=== PATIENT | male | born 1990 | race Caucasian/White ===

== ENCOUNTER 2017-11-12 16:33 | Inpatient (IN) ==
[2018-01-19] MEDS ORDERED: Docusate Sodium 100 MG Capsule PO PRN (00:26)
[2018-01-19] MEDS: QUEtiapine 25 MG Tablet PO SCH ×2 (12:40→16:18)
[2018-01-19] MEDS: Enoxaparin Inj 40 MG/0.4 ML Syringe SQ SCH (13:37)
--- NOTE | 2018-01-19 13:55 | P.PN ---
Subjective Interval history: Follow-up on patient with TBI, SDH, SAH with encephalopathy. Patient seen and examined. Patient's father is at the bedside. Patient complains of nausea and vomiting and being unable to tolerate diet. Patient's father states that that is inaccurate and the patient has been tolerating diet fine without any N/V. Patient is requesting "a downer". Patient's father states that patient has insomnia and is requesting Valium at night to help him sleep. Discussed with nursing staff, no acute medical issues noted. Needs orthosis for right upper extremity. Physical Exam Vital signs: Vital Signs 01/19/18 08:00 01/19/18 12:00 Temperature 98.1 F 98.3 F Pulse Rate 110 H 130 H Respiratory Rate 20 20 Blood Pressure 106/58 L 103/61 Pulse Oximetry 98 98 Intake & Output 01/18/18 01/19/18 01/19/18 18:59 06:59 18:59 Intake Total 480 / 480 Balance 480 / 480 Weight 72.1 kg Intake: Oral 480 / 480 Other: # Voids 3 # Bowel Movements 2 Narrative: GENERAL: This is a well-developed well-nourished young male patient, INAD. Awake and alert. Sitting in wheelchair in his room presently but observed wheeling around the unit with the aid of his father. SKIN: Warm and dry. HEAD: Atraumatic. Normocephalic. EYES: Right eyelid ptosis, right pupil fixed adn dilated. Left pupil reactive. No scleral icterus. No injection or drainage. ENT: No nasal bleeding or discharge. Mucous membranes pink and moist. Airway patent. NECK: Trachea midline. CARDIOVASCULAR: Tachycardic. No murmurs, rubs or gallops. RESPIRATORY: Nonlabored. Clear to auscultation. Breath sounds equal bilaterally. GASTROINTESTINAL: Abdomen soft, non-tender, nondistended. Hepatic and splenic margins not palpable. MUSCULOSKELETAL: Extremities without clubbing, cyanosis, or edema. No obvious deformities. NEUROLOGICAL: Awake and alert. Periods of agitation per review of medical record and discussion with father who is at the bedside. Able to move all extremities spontaneously. Weak RUE. Normal but repetitive speech. PSYCHIATRIC: Calm and cooperative. Periods of agitation, impulsiveness. PROCEDURES: 11/12: Intubated 11/12 - 11/23: [place] 11/27: PEG placement 11/28: [employer]ICIAN placement 11/28:Elevation and debridement right frontal closed depressed skull fracture 12/09: Pt pulled out his trach. 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 Resting hand splint ordered for right upper extremity per OT recommendations (2) Extensive facial fractures Code(s): S02.92XA - Unspecified fracture of facial bones, initial encounter for closed fracture Status: Acute Plan: OMFS consulted, nonoperative management (3) Intracranial bleed Code(s): I62.9 - Nontraumatic intracranial hemorrhage, unspecified Status: Acute Plan: CT the brain for any change in neurologic status Seizure precautions (4) Major neurocognitive disorder as late effect of traumatic brain injury with behavioral disturbance Code(s): S06.9X9S - Unspecified intracranial injury with loss of consciousness of unspecified duration, sequela; F02.81 - Dementia in other diseases classified elsewhere with behavioral disturbance Status: Acute Plan: Patient with periods of impulsiveness and agitation Neuropsychology following Continue on Seroquel 50 mg twice daily and 100 mg nightly Fall precautions. Restrained patient as needed for patient safety -status post fall 12/25 despite close nursing supervision and bed alarm in place Trial of Melatonin prn insomnia (5) Respiratory failure Code(s): J96.90 - Respiratory failure, unspecified, unspecified whether with hypoxia or hypercapnia Status: Resolved Plan: 12/14 decannulated Continue to monitor respiratory status Supplemental oxygen as needed (6) MRSA infection Code(s): A49.02 - Methicillin resistant Staphylococcus aureus infection, unspecified site Status: Resolved Plan: Completed treatment with IV antibiotics per ID (7) Transaminitis Code(s): R74.0 - Nonspecific elevation of levels of transaminase and lactic acid dehydrogenase [LDH] Status: Chronic Plan: Hx of Hepatitis C Avoid hepatotoxic agents Continue to monitor liver function as indicated (8) Tachycardia Code(s): R00.0 - Tachycardia, unspecified Status: Acute Plan: Suspect secondary to agitation Continue on propanolol Continue to monitor heart rate (9) Catheter-associated urinary tract infection Code(s): T83.511A - Infection and inflammatory reaction due to indwelling urethral catheter, initial encounter; N39.0 - Urinary tract infection, site not specified Status: Resolved Plan: Urine cx + Pseudomonas and enterococcus gallinarum Completed antibiotic treatment (10) DVT prophylaxis Status: Acute Plan: Lovenox 40mg sq daily - Plan Discussed Condition With: patient, father, nursing staff and Dr. Sanford Discharge Planning: Difficult placement. Case management assisting with ongoing discharge planning.
[2018-01-19] MEDS: QUEtiapine 100 MG Tablet PO SCH (21:08)
[2018-01-19] MEDS: Melatonin 5 MG Tablet PO PRN (23:06)
[2018-01-20] MEDS: QUEtiapine 25 MG Tablet PO SCH ×2 (08:41→16:52)
--- NOTE | 2018-01-20 08:43 | P.PNNPSY ---
- Behavior Mild: Impulsive/agitated - Cognitive Severe: Cognitive, Attention/concentration, Confused/orientation, Insight/ awareness, Judgment/problem solving, Memory - Psychosocial Severe: Psychosocial, Family/other adjustment, Realistic expectation - Progress Notes/Response to Treatment Contents of Sessions: Adjustment Time with Patient: 15 minutes Premorbid Psychological Status: Premorbid Cognitive, Emotional and Behavioral Status: Unstable. The patient has high school years of education and a minimal work history prior to this injury. The patient has prior psychiatric difficulties, as described above. Substance abuse history is significant. Behavioral Reactions of Patient and Family/Support System: Unstable. The patients family is experiencing ongoing issues of adjustment given the nature of the injury, and this aspect of recovery will require ongoing monitoring. Emotional/Behavioral Status of Patient and Family/Support System: Unstable. Pertinent issues, if appropriate to this patients clinical care, are described in detail above. Maximizing Acute Care Outcome: It is recommended that the patient be monitored for emergent behavioral impulsivity as the medical condition evolves. This patients neuropathological challenges may limit rehabilitation potential going forward, and these challenges will require specialized therapeutic skills to maximize outcome. Additionally, the patients family is experiencing ongoing issues of adjustment given the traumatic nature of the injury, and they may benefit from ongoing psychological assistance. At this point in the recovery process, the patient does not have cognitive capacity as the patient is unable to understand a situation and its likely consequences, nor is the patient able to manipulate information rationally. Cognitive capacity will be assessed throughout the recovery process. Anticipated Problems: Ongoing areas of concern will include behavioral impulsivity, lack of insight and judgment, which is expected to improve with time and treatment. Presently , the patient remains improving in terms of his agitation. Given the severity of the patient's injuries it is my clinical opinion that this patient will be unable to return to any type of productive employment for at least one year, perhaps longer and likely never. This patient is not considered safe to discharge home without supervision. Treatment Plan: This clinician will continue to follow with you throughout the course of this patients rehabilitation treatment, and I will be available to meet with the patients family/support system to facilitate their understanding and the ongoing care of their family member. The goals of neuropsychological intervention shall be both educational and supportive to the family/support system as is deemed clinically appropriate. Disinhibition Score: 22.75 Aggression Score: 17.50 Lability Score: 23.32 Agitated Behavior Total Score: 21 Progress Note Narrative: PTD 69. The patient's agitation is improving, along with decreasing amounts of neurobehavioral medications. He is presently managed on Seroquel 50/50/100, VPA 250 QID and Melatonin HS. Father requested a sleep aid for the patient two nights ago. The patient is Rancho IV but improving. His ABS scores are 21 ( 22.3,17.5,23.3). This is good and relatively the same compared to 01/17. Suggestion is to continue to titrate Seroquel, perhaps to 25//75, keeping VPA , unless medically contraindicated. Doing so will facilitate his discharge to a facility. I will follow.
--- NOTE | 2018-01-20 10:21 | P.PNNS ---
Subjective Interval history: Complains of nausea. Patient is status post elevation of depressed skull fracture. Status post TBI with cerebral contusion. Physical Exam Vital signs: Vital Signs 01/19/18 12:00 01/19/18 16:00 01/19/18 20:00 Temperature 98.3 F 98.3 F 97.4 F L Pulse Rate 130 H 114 H 115 H Respiratory Rate 20 20 19 Blood Pressure 103/61 107/64 109/57 L Pulse Oximetry 98 97 96 01/20/18 00:00 01/20/18 08:00 Temperature 98.1 F 98.2 F Pulse Rate 119 H 100 H Respiratory Rate 19 18 Blood Pressure 117/59 L 107/57 L Pulse Oximetry 97 97 Intake & Output 01/19/18 01/20/18 01/20/18 18:59 06:59 18:59 Intake Total 3200 / 3200 240 / 240 Balance 3200 / 3200 240 / 240 Intake: Oral 3200 / 3200 240 / 240 Other: # Voids 4 3 Date of Last Bowel Movement 01/19/18 # Bowel Movements 2 Narrative: Patient is out of bed in a wheelchair. He is awake and alert. Oriented to person and place. His speech is relatively clear Does not know what month it is His extraocular movements are intact Right upper extremity he continues to have some right upper extremity weakness He is able to ambulate with assistance, holding onto the wheelchair per nursing report Assessment and Plan - Assessment (1) Closed traumatic brain injury with depressed frontal skull fracture Code(s): S02.0XXA - Fracture of vault of skull, initial encounter for closed fracture; S06.9X9A - Unspecified intracranial injury with loss of consciousness of unspecified duration, initial encounter Status: Acute Qualifiers: Encounter type: subsequent encounter - Plan Impression: Doing well following elevation debridement of right frontal depressed skull fracture in patient with traumatic brain injury. He is making steady improvement in cognitive function. Plan: Continuing PT/ST/OT. No further neurosurgical intervention planned at this point.
--- NOTE | 2018-01-20 10:52 | P.PN ---
Subjective Interval history: Follow-up on patient with TBI, SDH, SAH with encephalopathy. Patient seen and examined. Patient's father is at the bedside this morning. He denies any issues overnight. States patient slept better with addition of melatonin. Patient reports he feels "bad" and complains of nausea. Patient's father states this is a recurrent complaint however patient has no episodes of vomiting and is able to tolerate diet without any difficulties. Physical Exam Vital signs: Vital Signs 01/19/18 12:00 01/19/18 16:00 01/19/18 20:00 Temperature 98.3 F 98.3 F 97.4 F L Pulse Rate 130 H 114 H 115 H Respiratory Rate 20 20 19 Blood Pressure 103/61 107/64 109/57 L Pulse Oximetry 98 97 96 01/20/18 00:00 01/20/18 08:00 Temperature 98.1 F 98.2 F Pulse Rate 119 H 100 H Respiratory Rate 19 18 Blood Pressure 117/59 L 107/57 L Pulse Oximetry 97 97 Intake & Output 01/19/18 01/20/18 01/20/18 18:59 06:59 18:59 Intake Total 3200 / 3200 240 / 240 Balance 3200 / 3200 240 / 240 Intake: Oral 3200 / 3200 240 / 240 Other: # Voids 4 3 Date of Last Bowel Movement 01/19/18 # Bowel Movements 2 Narrative: GENERAL: This is a well-developed well-nourished young male patient, INAD. Awake and alert. Father is at the bedside. SKIN: Warm and dry. HEAD: Atraumatic. Normocephalic. EYES: Right eyelid ptosis, right pupil fixed and dilated. Left pupil reactive. No scleral icterus. No injection or drainage. ENT: No nasal bleeding or discharge. Mucous membranes pink and moist. Airway patent. NECK: Trachea midline. CARDIOVASCULAR: Tachycardic. No murmurs, rubs or gallops. RESPIRATORY: Nonlabored. Clear to auscultation. Breath sounds equal bilaterally. GASTROINTESTINAL: Abdomen soft, non-tender, nondistended. Hepatic and splenic margins not palpable. MUSCULOSKELETAL: Extremities without clubbing, cyanosis, or edema. No obvious deformities. NEUROLOGICAL: Awake and alert. Periods of agitation per review of medical record and discussion with father who is at the bedside. Able to move all extremities spontaneously. Weak RUE with minimal contractures noted. Normal but repetitive speech. PSYCHIATRIC: Calm and cooperative at present. Periods of agitation, impulsiveness. 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 Resting hand splint ordered for right upper extremity per OT recommendations (2) Extensive facial fractures Code(s): S02.92XA - Unspecified fracture of facial bones, initial encounter for closed fracture Status: Acute Plan: OMFS consulted, nonoperative management (3) Intracranial bleed Code(s): I62.9 - Nontraumatic intracranial hemorrhage, unspecified Status: Acute Plan: CT the brain for any change in neurologic status Seizure precautions (4) Major neurocognitive disorder as late effect of traumatic brain injury with behavioral disturbance Code(s): S06.9X9S - Unspecified intracranial injury with loss of consciousness of unspecified duration, sequela; F02.81 - Dementia in other diseases classified elsewhere with behavioral disturbance Status: Acute Plan: Patient with periods of impulsiveness and agitation Neuropsychology following Continue on Seroquel 50 mg twice daily and 100 mg nightly Fall precautions. Restrained patient as needed for patient safety -status post fall 12/25 despite close nursing supervision and bed alarm in place Trial of Melatonin prn insomnia - good results last night, continue. (5) Respiratory failure Code(s): J96.90 - Respiratory failure, unspecified, unspecified whether with hypoxia or hypercapnia Status: Resolved Plan: 12/14 decannulated Continue to monitor respiratory status Supplemental oxygen as needed (6) MRSA infection Code(s): A49.02 - Methicillin resistant Staphylococcus aureus infection, unspecified site Status: Resolved Plan: Completed treatment with IV antibiotics per ID (7) Transaminitis Code(s): R74.0 - Nonspecific elevation of levels of transaminase and lactic acid dehydrogenase [LDH] Status: Chronic Plan: Hx of Hepatitis C Avoid hepatotoxic agents Continue to monitor liver function as indicated (8) Tachycardia Code(s): R00.0 - Tachycardia, unspecified Status: Acute Plan: Suspect secondary to agitation Continue on propanolol Continue to monitor heart rate (9) Catheter-associated urinary tract infection Code(s): T83.511A - Infection and inflammatory reaction due to indwelling urethral catheter, initial encounter; N39.0 - Urinary tract infection, site not specified Status: Resolved Plan: Urine cx + Pseudomonas and enterococcus gallinarum Completed antibiotic treatment (10) DVT prophylaxis Status: Acute Plan: Lovenox 40mg sq daily - Plan Discussed Condition With: patient, father, nursing staff and Dr. Sanford Discharge Planning: Difficult placement. Case management assisting with ongoing discharge planning.
[2018-01-20] MEDS: Enoxaparin Inj 40 MG/0.4 ML Syringe SQ SCH (12:13)
[2018-01-20] MEDS: QUEtiapine 100 MG Tablet PO SCH (21:23)
[2018-01-20] MEDS: Melatonin 5 MG Tablet PO PRN (21:23)
[2018-01-21] MEDS: QUEtiapine 25 MG Tablet PO SCH ×2 (09:20→16:22)
--- NOTE | 2018-01-21 11:23 | P.PNNPSY ---
- Behavior Mild: Impulsive/agitated - Cognitive Severe: Cognitive, Attention/concentration, Confused/orientation, Insight/ awareness, Judgment/problem solving, Memory - Psychosocial Severe: Psychosocial, Family/other adjustment, Realistic expectation - Progress Notes/Response to Treatment Contents of Sessions: Adjustment, Level of consciousness Time with Patient: 15 minutes Premorbid Psychological Status: Premorbid Cognitive, Emotional and Behavioral Status: Unstable. The patient has high school years of education and a minimal work history prior to this injury. The patient has prior psychiatric difficulties, as described above. Substance abuse history is significant. Behavioral Reactions of Patient and Family/Support System: Unstable. The patients family is experiencing ongoing issues of adjustment given the nature of the injury, and this aspect of recovery will require ongoing monitoring. Emotional/Behavioral Status of Patient and Family/Support System: Unstable. Pertinent issues, if appropriate to this patients clinical care, are described in detail above. Maximizing Acute Care Outcome: It is recommended that the patient be monitored for emergent behavioral impulsivity as the medical condition evolves. This patients neuropathological challenges may limit rehabilitation potential going forward, and these challenges will require specialized therapeutic skills to maximize outcome. Additionally, the patients family is experiencing ongoing issues of adjustment given the traumatic nature of the injury, and they may benefit from ongoing psychological assistance. At this point in the recovery process, the patient does not have cognitive capacity as the patient is unable to understand a situation and its likely consequences, nor is the patient able to manipulate information rationally. Cognitive capacity will be assessed throughout the recovery process. Anticipated Problems: Ongoing areas of concern will include behavioral impulsivity, lack of insight and judgment, which is expected to improve with time and treatment. Presently , the patient remains improving in terms of his agitation. Given the severity of the patient's injuries it is my clinical opinion that this patient will be unable to return to any type of productive employment for at least one year, perhaps longer and likely never. This patient is not considered safe to discharge home without supervision. Treatment Plan: This clinician will continue to follow with you throughout the course of this patients rehabilitation treatment, and I will be available to meet with the patients family/support system to facilitate their understanding and the ongoing care of their family member. The goals of neuropsychological intervention shall be both educational and supportive to the family/support system as is deemed clinically appropriate. [place] COG Scale: Level IV Disinhibition Score: 22.75 Aggression Score: 17.50 Lability Score: 23.32 Agitated Behavior Total Score: 21 Progress Note Narrative: PTD 70. The patient was seen in the hallway, more appropriate behaviorally. He remains on Seroquel 50/50/100, VPA 250 QID and Melatonin (the latter reported with good results for insomnia yesterday night). His ABS was 21 (22.7 , 17.5,23.3), but this seems like an old score, and the intervention has not been completed in the past day. I do not that this score is at best reflects mild agitation, and as such the neurobehavioral issues are becoming controlled. He remains Rancho IV, but improving. Suggestion is to further titrate Seroquel to 25/25/75, with the goal of eventually d/c'ing altogether which will facilitate his transfer to a LTAC facility. I will follow.
[2018-01-21] MEDS: Enoxaparin Inj 40 MG/0.4 ML Syringe SQ SCH (12:21)
--- NOTE | 2018-01-21 16:48 | P.PN ---
Subjective Interval history: RN denies any deterioration. Pt frequently calling out to nurses with no serious concerns. This is apparently his daily behavior. Physical Exam Vital signs: Vital Signs 01/20/18 20:00 Temperature 97.4 F L Pulse Rate 114 H Respiratory Rate 22 Blood Pressure 102/59 L Pulse Oximetry 96 Intake & Output 01/20/18 01/21/18 01/21/18 18:59 06:59 18:59 Weight 72.1 kg Other: # Voids 1 Date of Last Bowel Movement 01/19/18 01/21/18 Narrative: Frequently calling out to nurses, unlabored breathing, Appears to be calm at times and then gets quite impulsive when he starts calling up to the nurses. 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 Resting hand splint ordered for right upper extremity per OT recommendations (2) Extensive facial fractures OMFS consulted, nonoperative management (3) Intracranial bleed CT the brain for any change in neurologic status Seizure precautions (4) Major neurocognitive disorder as late effect of traumatic brain injury with behavioral disturbance Patient with periods of impulsiveness and agitation Neuropsychology following Continue on Seroquel 50 mg twice daily and 100 mg nightly Fall precautions. Restrained patient as needed for patient safety -status post fall 12/25 despite close nursing supervision and bed alarm in place Trial of Melatonin prn insomnia - good results last night, continue. (5) Respiratory failure on RA (6) Transaminitis Hx of Hepatitis C Avoid hepatotoxic agents Continue to monitor liver function as indicated (7) Tachycardia Suspect secondary to agitation Continue on propanolol Continue to monitor heart rate (8) DVT prophylaxis Lovenox 40mg sq daily Discharge Planning: awaiting for home setup with wheelchair pending
[2018-01-21] MEDS: QUEtiapine 100 MG Tablet PO SCH (21:05)
[2018-01-21] MEDS: Melatonin 5 MG Tablet PO PRN (22:35)
[2018-01-22] MEDS: QUEtiapine 25 MG Tablet PO SCH ×2 (07:41→16:09)
--- NOTE | 2018-01-22 08:34 | P.PNNPSY ---
- Behavior Mild: Impulsive/agitated - Cognitive Severe: Cognitive, Attention/concentration, Confused/orientation, Insight/ awareness, Judgment/problem solving, Memory - Psychosocial Severe: Psychosocial, Family/other adjustment, Realistic expectation - Progress Notes/Response to Treatment Contents of Sessions: Adjustment, Level of consciousness Time with Patient: 15 minutes Premorbid Psychological Status: Premorbid Cognitive, Emotional and Behavioral Status: Unstable. The patient has high school years of education and a minimal work history prior to this injury. The patient has prior psychiatric difficulties, as described above. Substance abuse history is significant. Behavioral Reactions of Patient and Family/Support System: Unstable. The patients family is experiencing ongoing issues of adjustment given the nature of the injury, and this aspect of recovery will require ongoing monitoring. Emotional/Behavioral Status of Patient and Family/Support System: Unstable. Pertinent issues, if appropriate to this patients clinical care, are described in detail above. Maximizing Acute Care Outcome: It is recommended that the patient be monitored for emergent behavioral impulsivity as the medical condition evolves. This patients neuropathological challenges may limit rehabilitation potential going forward, and these challenges will require specialized therapeutic skills to maximize outcome. Additionally, the patients family is experiencing ongoing issues of adjustment given the traumatic nature of the injury, and they may benefit from ongoing psychological assistance. At this point in the recovery process, the patient does not have cognitive capacity as the patient is unable to understand a situation and its likely consequences, nor is the patient able to manipulate information rationally. Cognitive capacity will be assessed throughout the recovery process. Anticipated Problems: Ongoing areas of concern will include behavioral impulsivity, lack of insight and judgment, which is expected to improve with time and treatment. Presently , the patient remains improving in terms of his agitation. Given the severity of the patient's injuries it is my clinical opinion that this patient will be unable to return to any type of productive employment for at least one year, perhaps longer and likely never. This patient is not considered safe to discharge home without supervision. Treatment Plan: This clinician will continue to follow with you throughout the course of this patients rehabilitation treatment, and I will be available to meet with the patients family/support system to facilitate their understanding and the ongoing care of their family member. The goals of neuropsychological intervention shall be both educational and supportive to the family/support system as is deemed clinically appropriate. Rancho [place]igos COG Scale: Level IV Disinhibition Score: 22.75 Aggression Score: 14.00 Lability Score: 14.00 Agitated Behavior Total Score: 21 Progress Note Narrative: PTD 71. The patient's agitation appears to be improving. Today, his ABS is 21 (22.7,14,14) which seems to be trending down. However, in talking with father, the patient continues to have episodic dyscontrol. He remains on Seroquel 50/50 /100 and VPA 250 QID. Initial suggestion was to titrate Seroquel, perhaps to 25 /25/75, unless medically contraindicated. However, in light of report, corroborated by nursing, perhaps we should hold fast for now. Provided additional education on the ABS for nursing. In order to facilitate his discharge, he will likely need to be off the Seroquel. He remains Rancho IV. I will follow. - Diagnosis (1) Major neurocognitive disorder as late effect of traumatic brain injury with behavioral disturbance Status: Acute
[2018-01-22] MEDS: Enoxaparin Inj 40 MG/0.4 ML Syringe SQ SCH (11:20)
[2018-01-22] MEDS: QUEtiapine 100 MG Tablet PO SCH (20:36)
[2018-01-22] MEDS: Melatonin 5 MG Tablet PO PRN (20:36)
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
--- NOTE | 2018-01-23 08:27 | P.PNNPSY ---
- Behavior Mild: Impulsive/agitated - Cognitive Severe: Cognitive, Attention/concentration, Confused/orientation, Insight/ awareness, Judgment/problem solving, Memory - Psychosocial Moderate: Psychosocial, Family/other adjustment, Realistic expectation, Severe: Self-esteem/confidence - Progress Notes/Response to Treatment Contents of Sessions: Adjustment, Level of consciousness Time with Patient: 15 minutes Premorbid Psychological Status: Premorbid Cognitive, Emotional and Behavioral Status: Unstable. The patient has high school years of education and a minimal work history prior to this injury. The patient has prior psychiatric difficulties, as described above. Substance abuse history is significant. Behavioral Reactions of Patient and Family/Support System: Unstable. The patients family is experiencing ongoing issues of adjustment given the nature of the injury, and this aspect of recovery will require ongoing monitoring. Emotional/Behavioral Status of Patient and Family/Support System: Unstable. Pertinent issues, if appropriate to this patients clinical care, are described in detail above. Maximizing Acute Care Outcome: It is recommended that the patient be monitored for emergent behavioral impulsivity as the medical condition evolves. This patients neuropathological challenges may limit rehabilitation potential going forward, and these challenges will require specialized therapeutic skills to maximize outcome. Additionally, the patients family is experiencing ongoing issues of adjustment given the traumatic nature of the injury, and they may benefit from ongoing psychological assistance. At this point in the recovery process, the patient does not have cognitive capacity as the patient is unable to understand a situation and its likely consequences, nor is the patient able to manipulate information rationally. Cognitive capacity will be assessed throughout the recovery process. Anticipated Problems: Ongoing areas of concern will include behavioral impulsivity, lack of insight and judgment, which is expected to improve with time and treatment. Presently , the patient remains improving in terms of his agitation. Given the severity of the patient's injuries it is my clinical opinion that this patient will be unable to return to any type of productive employment for at least one year, perhaps longer and likely never. This patient is not considered safe to discharge home without supervision. Treatment Plan: This clinician will continue to follow with you throughout the course of this patients rehabilitation treatment, and I will be available to meet with the patients family/support system to facilitate their understanding and the ongoing care of their family member. The goals of neuropsychological intervention shall be both educational and supportive to the family/support system as is deemed clinically appropriate. [place] COG Scale: Level IV Disinhibition Score: 15.75 Aggression Score: 14.00 Lability Score: 23.32 Agitated Behavior Total Score: 17 Progress Note Narrative: PTD 72. The patient awaits discharge home. His agitation/restlessness appears to wax and wane, although ratings of such continue to be in the borderline range of significant, with recent ABS of 17 (15.8,14,23.3), the latter of which subscore that is significant being lability at 23.3 (the range is 14 to 56, with mild being between 22 and 28). He continues to be Rancho IV with some improvement. In all likelihood, these agitation issues will be chronic for him , given the neuropathology and comorbidities with the best we can do being what we have now. He remains on Seroquel 50/50/100 and VPA 250 QID. I will follow. - Diagnosis (1) Major neurocognitive disorder as late effect of traumatic brain injury with behavioral disturbance Status: Acute
[2018-01-23] MEDS: QUEtiapine 25 MG Tablet PO SCH ×2 (10:04→16:57)
[2018-01-23] MEDS: Enoxaparin Inj 40 MG/0.4 ML Syringe SQ SCH (11:30)
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
[2018-01-23] MEDS: QUEtiapine 100 MG Tablet PO SCH (20:25)
[2018-01-23] MEDS: Melatonin 5 MG Tablet PO PRN (20:25)
[2018-01-24] MEDS: QUEtiapine 25 MG Tablet PO SCH ×2 (08:36→16:00)
[2018-01-24] MEDS: Enoxaparin Inj 40 MG/0.4 ML Syringe SQ SCH (11:45)
[2018-01-24] MEDS: QUEtiapine 100 MG Tablet PO SCH (20:35)
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
[2018-01-25] MEDS: QUEtiapine 25 MG Tablet PO SCH ×2 (08:41→15:46)
[2018-01-25] MEDS: Enoxaparin Inj 40 MG/0.4 ML Syringe SQ SCH (11:16)
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
[2018-01-25] MEDS: QUEtiapine 100 MG Tablet PO SCH (20:38)
[2018-01-25] MEDS: Melatonin 5 MG Tablet PO PRN (21:52)
[2018-01-26] MEDS: QUEtiapine 25 MG Tablet PO SCH ×2 (09:39→17:23)
[2018-01-26] MEDS: Enoxaparin Inj 40 MG/0.4 ML Syringe SQ SCH (10:38)
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
[2018-01-26] MEDS: QUEtiapine 100 MG Tablet PO SCH (20:41)
[2018-01-26] MEDS: Melatonin 5 MG Tablet PO PRN (22:09)
--- NOTE | 2018-01-27 08:38 | P.PNNPSY ---
- Behavior Mild: Impulsive/agitated - Cognitive Severe: Cognitive, Attention/concentration, Confused/orientation, Insight/ awareness, Judgment/problem solving, Memory - Psychosocial Moderate: Psychosocial, Family/other adjustment, Realistic expectation, Self- esteem/confidence - Progress Notes/Response to Treatment Contents of Sessions: Adjustment, Level of consciousness Time with Patient: 15 minutes Premorbid Psychological Status: Premorbid Cognitive, Emotional and Behavioral Status: Unstable. The patient has high school years of education and a minimal work history prior to this injury. The patient has prior psychiatric difficulties, as described above. Substance abuse history is significant. Behavioral Reactions of Patient and Family/Support System: Unstable. The patients family is experiencing ongoing issues of adjustment given the nature of the injury, and this aspect of recovery will require ongoing monitoring. Emotional/Behavioral Status of Patient and Family/Support System: Unstable. Pertinent issues, if appropriate to this patients clinical care, are described in detail above. Maximizing Acute Care Outcome: It is recommended that the patient be monitored for emergent behavioral impulsivity as the medical condition evolves. This patients neuropathological challenges may limit rehabilitation potential going forward, and these challenges will require specialized therapeutic skills to maximize outcome. Additionally, the patients family is experiencing ongoing issues of adjustment given the traumatic nature of the injury, and they may benefit from ongoing psychological assistance. At this point in the recovery process, the patient does not have cognitive capacity as the patient is unable to understand a situation and its likely consequences, nor is the patient able to manipulate information rationally. Cognitive capacity will be assessed throughout the recovery process. Anticipated Problems: Ongoing areas of concern will include behavioral impulsivity, lack of insight and judgment, which is expected to improve with time and treatment. Presently , the patient remains improving in terms of his agitation. Given the severity of the patient's injuries it is my clinical opinion that this patient will be unable to return to any type of productive employment for at least one year, perhaps longer and likely never. This patient is not considered safe to discharge home without supervision. Treatment Plan: This clinician will continue to follow with you throughout the course of this patients rehabilitation treatment, and I will be available to meet with the patients family/support system to facilitate their understanding and the ongoing care of their family member. The goals of neuropsychological intervention shall be both educational and supportive to the family/support system as is deemed clinically appropriate. [place]o [place] COG Scale: Level IV Disinhibition Score: 21.00 Aggression Score: 14.00 Lability Score: 18.66 Agitated Behavior Total Score: 19 Progress Note Narrative: PTD 76. This patient is improving from a neurobehavioral standpoint, remains on VPA 250 QID and Seroquel 50/50/100. ABS is 19 (21,14,18.7). He is improving Rancho IV. I will follow. - Diagnosis (1) Major neurocognitive disorder as late effect of traumatic brain injury with behavioral disturbance Status: Acute
[2018-01-27] MEDS: QUEtiapine 25 MG Tablet PO SCH ×2 (08:55→19:46)
[2018-01-27] MEDS: Enoxaparin Inj 40 MG/0.4 ML Syringe SQ SCH (10:20)
--- NOTE | 2018-01-27 13:44 | P.PN ---
Physical Exam Vital signs: Vital Signs 01/26/18 16:00 01/26/18 20:23 Temperature 97.1 F L 97.8 F Pulse Rate 123 H 112 H Respiratory Rate 18 18 Blood Pressure 119/81 135/80 Pulse Oximetry 95 97 Intake & Output 01/26/18 01/27/18 01/27/18 18:59 06:59 18:59 Intake Total 1000 / 1000 760 / 760 Balance 1000 / 1000 760 / 760 Weight 73.4 kg Intake: Oral 1000 / 1000 760 / 760 Other: # Voids 5 3 # Bowel Movements 3 Narrative: Subjective: Follow-up TBI Patient in not acute distress ambulating in the hallways. No complaints at this time. No events overnight. Physical Examination: GENERAL: In nad. Ambulating in the hallways CARDIOVASCULAR: Regular rate and rhythm without murmurs, gallops, or rubs. RESPIRATORY: Breath sounds equal bilaterally. No accessory muscle use. Assessment and plan: (1) Traumatic brain injury with depressed frontal skull fracture RIGHT frontal depressed skull fx Basal skull fx RIGHT ICH SDH, SAH with encephalopathy 11/12 - 11/23 s/p bolt placement Neurosurgery following periodically, no further neurosurgical intervention at this point CT brain for any change in neurologic status Continue with seizure precautions Continue on valproic acid 250 mg 4 times daily Continue with PT/OT/ST. Resting hand splint for right upper extremity per OT recommendations (2) Extensive facial fractures OMFS consulted, nonoperative management (3) Intracranial bleed CT the brain for any change in neurologic status Seizure precautions (4) Major neurocognitive disorder as late effect of traumatic brain injury with behavioral disturbance Patient with periods of impulsiveness and agitation Neuropsychology following Continue on Seroquel 50 mg twice daily and 100 mg nightly Fall precautions. Restrained patient as needed for patient safety -status post fall 12/25 despite close nursing supervision and bed alarm in place Melatonin prn insomnia (5) Respiratory failure on RA (6) Transaminitis Hx of Hepatitis C Continue to monitor liver function as indicated (7) Tachycardia Suspect secondary to agitation Continue on propanolol Continue to monitor heart rate (8) DVT prophylaxis Lovenox 40mg sq daily Discharge Planning: awaiting for home discharge with wheelchair still pending DC when arrangements are done per CM Results - Labs CBC & Chem 7: 01/05/18 06:38 01/05/18 06:38
[2018-01-27] MEDS: QUEtiapine 100 MG Tablet PO SCH (21:10)
[2018-01-27] MEDS: Melatonin 5 MG Tablet PO PRN (22:13)
[2018-01-28] MEDS: QUEtiapine 25 MG Tablet PO SCH ×2 (08:14→20:11)
[2018-01-28] MEDS: Enoxaparin Inj 40 MG/0.4 ML Syringe SQ SCH (15:01)
--- NOTE | 2018-01-28 17:35 | P.PN ---
Physical Exam Vital signs: Vital Signs 01/27/18 20:00 01/28/18 00:00 01/28/18 08:00 Temperature 98 F 97.5 F L 97.8 F Pulse Rate 103 H 91 H 112 H Respiratory Rate 17 17 20 Blood Pressure 113/59 L 108/64 121/86 Pulse Oximetry 98 95 98 01/28/18 12:00 Temperature 97.8 F Pulse Rate 110 H Respiratory Rate 20 Blood Pressure 112/55 L Pulse Oximetry 98 Intake & Output 01/27/18 01/28/18 01/28/18 18:59 06:59 18:59 Intake Total 2400 / 2400 480 / 480 Balance 2400 / 2400 480 / 480 Intake: Oral 2400 / 2400 480 / 480 Other: # Voids 3 3 # Bowel Movements 1 Narrative: Subjective: Follow-up TBI Patient in not acute distress ambulating in the hallways. inocencio Reeves asking for knee braces , will consult PT for eval . No complaints at this time. No events overnight. Physical Examination: GENERAL: In nad. Ambulating in the hallways CARDIOVASCULAR: Regular rate and rhythm without murmurs, gallops, or rubs. RESPIRATORY: Breath sounds equal bilaterally. No accessory muscle use. Assessment and plan: (1) Traumatic brain injury with depressed frontal skull fracture RIGHT frontal depressed skull fx Basal skull fx RIGHT ICH SDH, SAH with encephalopathy 11/12 - 11/23 s/p bolt placement Neurosurgery following periodically, no further neurosurgical intervention at this point CT brain for any change in neurologic status Continue with seizure precautions Continue on valproic acid 250 mg 4 times daily Continue with PT/OT/ST. Resting hand splint for right upper extremity per OT recommendations (2) Extensive facial fractures OMFS consulted, nonoperative management (3) Intracranial bleed CT the brain for any change in neurologic status Seizure precautions (4) Major neurocognitive disorder as late effect of traumatic brain injury with behavioral disturbance Patient with periods of impulsiveness and agitation Neuropsychology following Continue on Seroquel 50 mg twice daily and 100 mg nightly Fall precautions. Restrained patient as needed for patient safety -status post fall 12/25 despite close nursing supervision and bed alarm in place Melatonin prn insomnia (5) Respiratory failure on RA (6) Transaminitis Hx of Hepatitis C Continue to monitor liver function as indicated (7) Tachycardia Suspect secondary to agitation Continue on propanolol Continue to monitor heart rate (8) DVT prophylaxis Lovenox 40mg sq daily Discharge Planning: awaiting for home discharge with wheelchair still pending DC when arrangements are done per CM Results - Labs CBC & Chem 7: 01/05/18 06:38 01/05/18 06:38
[2018-01-28] MEDS: QUEtiapine 100 MG Tablet PO SCH (21:45)
[2018-01-28] MEDS: Melatonin 5 MG Tablet PO PRN (21:46)
--- NOTE | 2018-01-29 08:48 | P.PNNPSY ---
- Behavior Moderate: Impulsive/agitated - Cognitive Severe: Cognitive, Attention/concentration, Confused/orientation, Insight/ awareness, Judgment/problem solving, Memory - Psychosocial Severe: Psychosocial, Family/other adjustment, Realistic expectation, Self- esteem/confidence - Progress Notes/Response to Treatment Contents of Sessions: Adjustment, Level of consciousness Time with Patient: 15 minutes Premorbid Psychological Status: Premorbid Cognitive, Emotional and Behavioral Status: Unstable. The patient has high school years of education and a minimal work history prior to this injury. The patient has prior psychiatric difficulties, as described above. Substance abuse history is significant. Behavioral Reactions of Patient and Family/Support System: Unstable. The patients family is experiencing ongoing issues of adjustment given the nature of the injury, and this aspect of recovery will require ongoing monitoring. Emotional/Behavioral Status of Patient and Family/Support System: Unstable. Pertinent issues, if appropriate to this patients clinical care, are described in detail above. Maximizing Acute Care Outcome: It is recommended that the patient be monitored for emergent behavioral impulsivity as the medical condition evolves. This patients neuropathological challenges may limit rehabilitation potential going forward, and these challenges will require specialized therapeutic skills to maximize outcome. Additionally, the patients family is experiencing ongoing issues of adjustment given the traumatic nature of the injury, and they may benefit from ongoing psychological assistance. At this point in the recovery process, the patient does not have cognitive capacity as the patient is unable to understand a situation and its likely consequences, nor is the patient able to manipulate information rationally. Cognitive capacity will be assessed throughout the recovery process. Anticipated Problems: Ongoing areas of concern will include behavioral impulsivity, lack of insight and judgment, which is expected to improve with time and treatment. Presently , the patient remains improving in terms of his agitation. Given the severity of the patient's injuries it is my clinical opinion that this patient will be unable to return to any type of productive employment for at least one year, perhaps longer and likely never. This patient is not considered safe to discharge home without supervision. Treatment Plan: This clinician will continue to follow with you throughout the course of this patients rehabilitation treatment, and I will be available to meet with the patients family/support system to facilitate their understanding and the ongoing care of their family member. The goals of neuropsychological intervention shall be both educational and supportive to the family/support system as is deemed clinically appropriate. [place] COG Scale: Level IV Disinhibition Score: 28.00 Aggression Score: 28.00 Lability Score: 23.32 Agitated Behavior Total Score: 26 Progress Note Narrative: PTD 78. The patient exhibited increasing agitation yesterday, with ABS of 26 ( 28,28,23.3). 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 Presently, he is on VPA 250 QID and Seroquel 50/50/100. Consider increasing VPA to 500 TID. Psychiatry consulted concerning suicidal ideation. He remains agitated and impulsive from his brain injury, yet his neurocognitive disorder and characterological maladjustment would make it difficult for him to follow through. I will follow. - Diagnosis (1) Major neurocognitive disorder as late effect of traumatic brain injury with behavioral disturbance Status: Acute
[2018-01-29] MEDS: QUEtiapine 25 MG Tablet PO SCH ×3 (09:09→21:46)
[2018-01-29] MEDS: Enoxaparin Inj 40 MG/0.4 ML Syringe SQ SCH (10:26)
--- NOTE | 2018-01-29 10:47 | P.PN ---
Physical Exam Vital signs: Vital Signs 01/28/18 12:00 01/28/18 20:00 01/29/18 00:00 Temperature 97.8 F 97.4 F L 97.3 F L Pulse Rate 110 H 100 H 110 H Respiratory Rate 20 20 17 Blood Pressure 112/55 L 96/54 L 113/62 Pulse Oximetry 98 94 L 97 01/29/18 08:00 Temperature 97.4 F L Pulse Rate 102 H Respiratory Rate 18 Blood Pressure 107/68 Pulse Oximetry Intake & Output 01/28/18 01/29/18 01/29/18 18:59 06:59 18:59 Intake Total 3200 / 3200 480 / 480 Balance 3200 / 3200 480 / 480 Intake: Oral 3200 / 3200 480 / 480 Other: # Voids 3 3 # Bowel Movements 1 Narrative: Subjective: Follow-up TBI Patient in not acute distress ambulating in the hallways. With suicidal ideation , consult psych discussed with Dr Leavitt Physical Examination: GENERAL: In nad. Ambulating in the hallways CARDIOVASCULAR: Regular rate and rhythm without murmurs, gallops, or rubs. RESPIRATORY: Breath sounds equal bilaterally. No accessory muscle use. Assessment and plan: (1) Traumatic brain injury with depressed frontal skull fracture RIGHT frontal depressed skull fx Basal skull fx RIGHT ICH SDH, SAH with encephalopathy 11/12 - 11/23 s/p bolt placement Neurosurgery following periodically, no further neurosurgical intervention at this point CT brain for any change in neurologic status Continue with seizure precautions Continue on valproic acid 250 mg 4 times daily Continue with PT/OT/ST. Resting hand splint for right upper extremity per OT recommendations (2) Extensive facial fractures OMFS consulted, nonoperative management (3) Intracranial bleed CT the brain for any change in neurologic status Seizure precautions (4) Major neurocognitive disorder as late effect of traumatic brain injury with behavioral disturbance Patient with periods of impulsiveness and agitation Neuropsychology following Continue on Seroquel 50 mg twice daily and 100 mg nightly Fall precautions. Restrained patient as needed for patient safety -status post fall 12/25 despite close nursing supervision and bed alarm in place Melatonin prn insomnia (5) Respiratory failure on RA (6) Transaminitis Hx of Hepatitis C Continue to monitor liver function as indicated (7) Tachycardia Suspect secondary to agitation Continue on propanolol Continue to monitor heart rate (8) DVT prophylaxis Lovenox 40mg sq daily (9) Suicidal ideation Consult psych spoke with Dr Leavitt Also neuropsychology is ff Dr Reich Discharge Planning: Awaiting for home discharge with wheelchair still pending DC when arrangements are done per CM Discussed with the patient, nurse, Dr Leavitt , family Results - Labs CBC & Chem 7: 01/05/18 06:38 01/05/18 06:38
--- NOTE | 2018-01-29 14:16 | P.CONPSY ---
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 RIGHT frontal depressed skull fx. Basal skull fx and as a consequence Major neurocognitive disorder as late effect of traumatic brain injury with behavioral disturbance. Patient with periods of impulsiveness and agitation. Controlled with Seroquel 50 mg twice daily and 100 also with Depakote 250 mg twice daily. Consulted to psychiatry due to suicidal ideation. EMR reviewed. Case discussed with Dr. Pereira. Collateral information from mother of the patient Clarissa Suh was obtained. On psychiatric evaluation the patient is calm and cooperative. The patient information is poorly reliable due to cognitive impairment secondary to TBI. The patient reports that he feels fine, he is very persistent in requesting to be brought to the yard to smoke. He reports good mood. He says that he wants to get better. The patient reports that his main goal is to leave the hospital and to get back his life. He denies depressive symptoms, he denies anhedonia, he denies hopelessness, he denies helplessness, he denies suicidal enemas ideation. He denies visual and auditory hallucinations. Patient is quite future oriented,"I would love to smoke and walk out". I did not observe any increased paranoia or delusions, agitation or aggressive behavior at this moment. The patient is partially oriented in time and place, oriented to person , he knows who is the clerk funeral detail, he knows the reason of his hospitalization. His mother at bedside reports that a moment the patient becomes agitated, quite impulsive, but seems to be at baseline at this moment. Review of Systems Constitutional: Denies anorexia, Denies body ache(s), Denies chills, Denies daytime sleepiness, Denies excessive sweating, Denies fatigue, Denies fever(s), Denies headache(s), Denies increased appetite, Denies lack of energy, Denies malaise, Denies night sweats, Denies weakness, Denies weight gain, Denies weight loss, Denies other Ears, Nose, Mouth, and Throat: Denies abnormal hearing, Denies bleeding gums, Denies bad breath, Denies change in voice, Denies dental pain, Denies difficulty swallowing, Denies dizziness, Denies dry mouth, Denies ear discharge , Denies ear pain, Denies facial pain, Denies headache(s), Denies hearing loss, Denies hoarseness, Denies lip swelling, Denies nosebleed, Denies mouth lesions, Denies mouth pain, Denies nasal congestion, Denies nasal discharge, Denies nasal obstruction, Denies nasal trauma, Denies neck lump, Denies neck pain, Denies nose pain, Denies pain with swallowing, Denies poor balance, Denies post nasal drip, Denies ringing in the ears, Denies sinus pain, Denies sinus pressure , Denies sore throat, Denies throat swelling, Denies tongue swelling, Denies other Cardiovascular: Denies chest pain, Denies chest pain at rest, Denies chest pain with activity, Denies excessive sweating, Denies fainting, Denies fast heart rate, Denies foot swelling, Denies generalized swelling, Denies irregular heart rhythm, Denies leg pain with activity, Denies leg sores, Denies leg swelling, Denies lightheadedness, Denies radiating jaw, neck or arm pain, Denies rapid, pounding, or irregular heartbeat, Denies shortness of breath, Denies shortness of breath with activity, Denies shortness of breath when lying down, Denies shortness of breath causing sudden awakening, Denies slow heart rate, Denies other Respiratory: Denies change in phlegm color, Denies chest congestion, Denies cough, Denies coughing up blood, Denies excessive phlegm production, Denies pain on inspiration, Denies pain with cough, Denies shortness of breath, Denies shortness of breath with activity, Denies snoring, Denies stridor, Denies wheezing, Denies other Gastrointestinal: Denies abdominal pain, Denies belching, Denies black, tarry stools, Denies bloating, Denies bright, red blood in stools, Denies change in bowel habits, Denies constant urge to pass stool, Denies change in stools, Denies coffee ground vomit, Denies constipation, Denies cramping, Denies difficulty swallowing, Denies excessive passing of gas, Denies feeling full early, Denies heartburn, Denies incontinent of stools, Denies loose stools, Denies nausea, Denies pain with swallowing, Denies vomiting, Denies vomiting blood, Denies other Genitourinary: Denies blood in semen, Denies blood in urine, Denies decreased urination, Denies difficulty urinating, Denies difficulty with ejaculations, Denies erectile dysfunction, Denies genital lesions, Denies genital pain, Denies painful urination, Denies side pain, Denies frequent nighttime urination , Denies painful ejaculations, Denies penile discharge, Denies scrotal swelling , Denies testicle lump, Denies testicle pain, Denies urinary frequency, Denies urinary hesitancy, Denies urinary incontinence, Denies urinary urgency, Denies other Neurologic: Denies abnormal hearing, Denies abnormal movements, Denies abnormal speech, Denies abnormal walking, Denies behavioral changes, Denies burning sensations, Denies confusion, Denies dizziness, Denies fainting, Denies frequent falls, Denies headache(s), Denies lack of coordination, Denies localized weakness, Denies loss of vision, Denies memory loss, Denies numbness, Denies other visual disturbances, Denies radiating pain, Denies restless legs, Denies convulsions, Denies seizure-like activity, Denies sensory deficit, Denies tingling, Denies tingling/numbness/burning sensations, Denies tremor(s), Denies unsteadiness, Denies weakness, Denies other Psychiatric: Denies abnormal sleep pattern, Denies anxiety, Denies behavioral changes, Denies change in appetite, Denies change in sex drive, Denies confusion , Denies depression, Denies difficulty concentrating, Denies hearing things others do not hear, Denies hopelessness, Denies irritability, Denies lack of enjoyment, Denies memory loss, Denies mood swings, Denies panic attacks, Denies paranoia, Denies seeing things others do not see, Denies sensing things others do not sense, Denies tactile hallucinations, Denies thoughts of hurting/killing others, Denies thoughts of hurting/killing yourself, Denies other Medications and Allergies Active Medications: Active Medications Acetaminophen (Tylenol Liq) 650 mg PO Q4H PRN PRN Reason: Pain 1-10, Fever > 101 Last Admin: 01/27/18 21:09 Dose: 650 mg Albuterol (Duoneb Neb (Prn)) 1 ampul NEB Q2HR NEB PRN PRN Reason: WHEEZING Docusate Sodium (Colace) 100 mg PO BID PRN PRN Reason: CONSTIPATION Enalaprilat (Vasotec Inj) 1.25 mg IV.PUSH Q8H PRN PRN Reason: SBP>180, DBP>95 Enoxaparin Sodium (Lovenox Inj) 40 mg SQ Q24H [facility] Last Admin: 01/29/18 10:26 Dose: Not Given Lactulose (Lactulose Liq) 30 ml PO DAILY PRN PRN Reason: No BM in 2 days Melatonin (Melatonin) 5 mg PO HS PRN PRN Reason: INSOMNIA Last Admin: 01/28/18 21:46 Dose: 5 mg Miscellaneous (Pill Splitter) 1 each OTHER UNSCH PRN PRN Reason: SEE LABEL COMMENTS Ondansetron HCl (Zofran Odt) 4 mg PO Q6H PRN PRN Reason: NA Last Admin: 01/22/18 22:13 Dose: 4 mg Ondansetron HCl (Zofran Inj) 4 mg IV.PUSH Q6H PRN PRN Reason: NAUSEA OR VOMITING Propranolol HCl (Inderal) 20 mg PO Q8HR [facility] Last Admin: 01/29/18 13:12 Dose: Not Given Quetiapine Fumarate (Seroquel) 100 mg PO HS [facility] Last Admin: 01/28/18 21:45 Dose: 100 mg Quetiapine Fumarate (Seroquel) 50 mg PO BID@0800,1600 [facility] Last Admin: 01/29/18 09:09 Dose: 50 mg Sodium Chloride (Ns Flush) 2 ml IV.FLUSH PRN PRN PRN Reason: FLUSH AFTER USING IV ACCESS Valproate Sodium (Depakene Liq) 250 mg PO QID [facility] Last Admin: 01/29/18 13:11 Dose: 250 mg Allergies Allergy/AdvReac Type Severity Reaction Status Date / Time No Known Allergies Allergy Verified 01/18/18 13:46 Home Medications Medication Instructions Recorded Confirmed Type No Known Home Medications 01/18/18 01/18/18 History Exam Vital signs: Vital Signs 01/28/18 20:00 01/29/18 00:00 01/29/18 08:00 Temperature 97.4 F L 97.3 F L 97.4 F L Pulse Rate 100 H 110 H 102 H Respiratory Rate 20 17 18 Blood Pressure 96/54 L 113/62 107/68 Pulse Oximetry 94 L 97 Intake & Output 01/28/18 01/29/18 01/29/18 18:59 06:59 18:59 Intake Total 3200 / 3200 480 / 480 Balance 3200 / 3200 480 / 480 Intake: Oral 3200 / 3200 480 / 480 Other: # Voids 3 3 # Bowel Movements 1 Narrative: No tremors, no EPS, no psychomotor agitation or retardation at the moment, - Constitutional no acute distress - Routine HEENT Exam Head: Present: normocephalic ENT: Present: mucous membranes moist Mental Status Examination Appearance: Appropriate Consciousness: Alert Orientation: Person, Place, Date/Time Speech: Unremarkable Language: Adequate Fund of Knowledge: Adequate Attention and Concentration: Adequate Memory: Unremarkable Mood: Appropriate Affect: Appropriate Thought Process & Associations: Intact Thought Content: Appropriate Hallucination Type: None Suicidal Ideation: No Suicidal Plan: No Suicidal Intention: No Homicidal Ideation: No Homicidal Plan: No Homicidal Intention: No Insight: Poor Judgment: Poor Assessment and Plan - Assessment (1) Major neurocognitive disorder as late effect of traumatic brain injury with behavioral disturbance Code(s): S06.9X9S - Unspecified intracranial injury with loss of consciousness of unspecified duration, sequela; F02.81 - Dementia in other diseases classified elsewhere with behavioral disturbance Status: Acute - Plan Plan: Estimated LOS: [] days On psychiatric evaluation today the patient does not present any prominent symptomatology of depression, anxiety, benedict or psychosis. The patient denies suicidal enemas ideation, he denies visual and auditory hallucinations. Patient is just partially oriented, with concrete thinking, perseverant, impaired abstract thought which is to be the result of neurocognitive disorder secondary to TBI. Patient does not present any prominent agitation, delusion, aggressive behavior, paranoia, ideas of reference thought controlling at the moment of my evaluation, giving his cognitive impairment agitation and aggressive behavior can be expected. The patient seems to be well-controlled with Seroquel 50 mg in the morning 100 mg at bedtime, and Depakote 250 mg twice daily. Avoid benzodiazepines and anticholinergic as much as possible in this patient since this medication can worsen neuro cognition with TBI. Patient does report difficulty sleeping at night. Might increase Seroquel to 200 mg at bedtime to help with sleep. Order Depakote levels and if he is under 50 and also increase Depakote to 500 mg twice daily. He does not meet criteria for involuntary psychiatric admission. His reported suicidal ideation was most probably the result of poor impulse control/coping skills rather than secondary to a mood disorder. Consult appreciated. Justification for Continued Inpatient Stay: No admission indicated.
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
[2018-01-29] MEDS: Melatonin 5 MG Tablet PO PRN (21:45)
[2018-01-29] MEDS: QUEtiapine 100 MG Tablet PO SCH (21:46)
--- NOTE | 2018-01-30 08:30 | P.PNNPSY ---
- Behavior Mild: Impulsive/agitated - Cognitive Severe: Cognitive, Attention/concentration, Confused/orientation, Insight/ awareness, Judgment/problem solving, Memory - Psychosocial Severe: Psychosocial, Family/other adjustment, Realistic expectation - Progress Notes/Response to Treatment Contents of Sessions: Adjustment, Level of consciousness Time with Patient: 15 minutes Premorbid Psychological Status: Premorbid Cognitive, Emotional and Behavioral Status: Unstable. The patient has high school years of education and a minimal work history prior to this injury. The patient has prior psychiatric difficulties, as described above. Substance abuse history is significant. Behavioral Reactions of Patient and Family/Support System: Unstable. The patients family is experiencing ongoing issues of adjustment given the nature of the injury, and this aspect of recovery will require ongoing monitoring. Emotional/Behavioral Status of Patient and Family/Support System: Unstable. Pertinent issues, if appropriate to this patients clinical care, are described in detail above. Maximizing Acute Care Outcome: It is recommended that the patient be monitored for emergent behavioral impulsivity as the medical condition evolves. This patients neuropathological challenges may limit rehabilitation potential going forward, and these challenges will require specialized therapeutic skills to maximize outcome. Additionally, the patients family is experiencing ongoing issues of adjustment given the traumatic nature of the injury, and they may benefit from ongoing psychological assistance. At this point in the recovery process, the patient does not have cognitive capacity as the patient is unable to understand a situation and its likely consequences, nor is the patient able to manipulate information rationally. Cognitive capacity will be assessed throughout the recovery process. Anticipated Problems: Ongoing areas of concern will include behavioral impulsivity, lack of insight and judgment, which is expected to improve with time and treatment. Presently , the patient remains improving in terms of his agitation. Given the severity of the patient's injuries it is my clinical opinion that this patient will be unable to return to any type of productive employment for at least one year, perhaps longer and likely never. This patient is not considered safe to discharge home without supervision. Treatment Plan: This clinician will continue to follow with you throughout the course of this patients rehabilitation treatment, and I will be available to meet with the patients family/support system to facilitate their understanding and the ongoing care of their family member. The goals of neuropsychological intervention shall be both educational and supportive to the family/support system as is deemed clinically appropriate. [place] COG Scale: Level IV Disinhibition Score: 28.00 Aggression Score: 28.00 Lability Score: 23.32 Agitated Behavior Total Score: 26 Progress Note Narrative: PTD 79. Patient seen by psychiatry, with opinion consistent with current treatment approach. ABS was 26 (18,18,23.2), still Rancho IV. Consider increasing VPA to 500 TID from current 250 QID, keeping Seroquel at 50/50/100, unless medically contraindicated. Discussed with Dr. 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 I will follow. - Diagnosis (1) Major neurocognitive disorder as late effect of traumatic brain injury with behavioral disturbance Status: Acute
[2018-01-30] MEDS: QUEtiapine 25 MG Tablet PO SCH ×3 (09:09→20:15)
[2018-01-30] MEDS: Enoxaparin Inj 40 MG/0.4 ML Syringe SQ SCH (10:37)
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
[2018-01-30] MEDS: Melatonin 5 MG Tablet PO PRN (20:15)
[2018-01-30] MEDS: QUEtiapine 100 MG Tablet PO SCH (20:15)
[2018-01-31] MEDS: QUEtiapine 25 MG Tablet PO SCH ×3 (08:32→20:59)
--- NOTE | 2018-01-31 08:33 | P.PNNPSY ---
- Behavior Mild: Impulsive/agitated - Cognitive Severe: Cognitive, Attention/concentration, Confused/orientation, Insight/ awareness, Judgment/problem solving, Memory - Psychosocial Severe: Psychosocial, Family/other adjustment, Realistic expectation - Progress Notes/Response to Treatment Contents of Sessions: Adjustment, Level of consciousness Time with Patient: 15 minutes Premorbid Psychological Status: Premorbid Cognitive, Emotional and Behavioral Status: Unstable. The patient has high school years of education and a minimal work history prior to this injury. The patient has prior psychiatric difficulties, as described above. Substance abuse history is significant. Behavioral Reactions of Patient and Family/Support System: Unstable. The patients family is experiencing ongoing issues of adjustment given the nature of the injury, and this aspect of recovery will require ongoing monitoring. Emotional/Behavioral Status of Patient and Family/Support System: Unstable. Pertinent issues, if appropriate to this patients clinical care, are described in detail above. Maximizing Acute Care Outcome: It is recommended that the patient be monitored for emergent behavioral impulsivity as the medical condition evolves. This patients neuropathological challenges may limit rehabilitation potential going forward, and these challenges will require specialized therapeutic skills to maximize outcome. Additionally, the patients family is experiencing ongoing issues of adjustment given the traumatic nature of the injury, and they may benefit from ongoing psychological assistance. At this point in the recovery process, the patient does not have cognitive capacity as the patient is unable to understand a situation and its likely consequences, nor is the patient able to manipulate information rationally. Cognitive capacity will be assessed throughout the recovery process. Anticipated Problems: Ongoing areas of concern will include behavioral impulsivity, lack of insight and judgment, which is expected to improve with time and treatment. Presently , the patient remains improving in terms of his agitation. Given the severity of the patient's injuries it is my clinical opinion that this patient will be unable to return to any type of productive employment for at least one year, perhaps longer and likely never. This patient is not considered safe to discharge home without supervision. Treatment Plan: This clinician will continue to follow with you throughout the course of this patients rehabilitation treatment, and I will be available to meet with the patients family/support system to facilitate their understanding and the ongoing care of their family member. The goals of neuropsychological intervention shall be both educational and supportive to the family/support system as is deemed clinically appropriate. Rancho [place] Amigos COG Scale: Level IV Disinhibition Score: 28.00 Aggression Score: 28.00 Lability Score: 23.32 Agitated Behavior Total Score: 26 Progress Note Narrative: PTD 80. VPA was increased yesterday to 500 TID, remains on Seroquel 50/50/100. The evening ABS was not completed so it is unclear how the evening went for Mr. Suh. Last ABS was 26(28,28,23.2). He remains Rancho IV, emerging V with underlying characterological maladjustment. He was given permission to go to the cafe on the first floor, and we will see how that went. Turns out that he overstepped the boundaries, escaped once from the unit, and now will not longer be allowed to visit off the floor. A PRN Haldol was added to manage acute agitation. I will follow. - Diagnosis (1) Major neurocognitive disorder as late effect of traumatic brain injury with behavioral disturbance Status: Acute
[2018-01-31] MEDS: Enoxaparin Inj 40 MG/0.4 ML Syringe SQ SCH (10:46)
[2018-01-31] MEDS ORDERED: Haloperidol Inj 5 MG/ML Ampul IM PRN (12:39)
[2018-01-31] MEDS: Melatonin 5 MG Tablet PO PRN (20:59)
[2018-01-31] MEDS: QUEtiapine 100 MG Tablet PO SCH (20:59)
--- NOTE | 2018-01-31 22:55 | P.PN ---
Subjective Interval history: Follow up for TBI, sub-dural, subarachnoid hemorrhage and encephalopathy. Patient is ambulating or standing near the door and keeps shouting how he wants to go outside smoke cigarettes. Patient's father is at bedside who is trying to help. Physical Exam Vital signs: Vital Signs 01/31/18 08:00 01/31/18 12:00 01/31/18 16:00 Temperature 97.9 F 98.1 F 98.3 F Pulse Rate 85 119 H 108 H Respiratory Rate 18 20 18 Blood Pressure 113/57 L 106/75 125/66 Pulse Oximetry 98 97 96 01/31/18 20:00 Temperature 97.3 F L Pulse Rate 121 H Respiratory Rate 16 Blood Pressure 128/82 Pulse Oximetry 100 Intake & Output 01/31/18 01/31/18 02/01/18 06:59 18:59 06:59 Intake Total 480 / 480 960 / 960 Balance 480 / 480 960 / 960 Weight 73.4 kg Intake: Oral 480 / 480 960 / 960 Other: # Voids 2 5 Date of Last Bowel Movement 01/30/18 # Bowel Movements 1 Narrative: GENERAL: Alert, NAD. SKIN: Warm and dry. HEAD: Normocephalic. EYES: No scleral icterus. No injection or drainage. Right eye closed. NECK: Supple, trachea midline. No JVD or lymphadenopathy. CARDIOVASCULAR: Regular rate and rhythm without murmurs, gallops, or rubs. RESPIRATORY: Breath sounds equal bilaterally. No accessory muscle use. GASTROINTESTINAL: Abdomen soft, non-tender, nondistended. MUSCULOSKELETAL: No cyanosis, or edema. BACK: Nontender without obvious deformity. No CVA tenderness. Results - Labs CBC & Chem 7: 01/05/18 06:38 01/05/18 06:38 Assessment and Plan - Plan Traumatic brain injury with depressed frontal skull fracture RIGHT frontal depressed skull fx Basal skull fx RIGHT ICH SDH, SAH with encephalopathy 11/12 - 11/23 s/p bolt placement Neurosurgery following peripherally, no further neurosurgical intervention at this point CT brain for any change in neurologic status Continue with seizure precautions Continue on valproic acid 250 mg 4 times daily Continue with PT/OT/ST. Resting hand splint for right upper extremity per OT recommendations Extensive facial fractures OMFS consulted ==> nonoperative management Intracranial bleed CT the brain for any change in neurologic status Seizure precautions Major neurocognitive disorder as late effect of traumatic brain injury with behavioral disturbance Patient with periods of impulsiveness and agitation Neuropsychology following Continue on Seroquel 50 mg twice daily and 100 mg nightly Fall precautions. Restrained patient as needed for patient safety -status post fall 12/25 despite close nursing supervision and bed alarm in place Melatonin prn insomnia Today 01/31/2018, patient has been very agitated. Will start PRN haloperidol 2mg IM DVT prophylaxis Lovenox 40mg sq daily
[2018-02-01] MEDS: QUEtiapine 25 MG Tablet PO SCH ×2 (09:41→21:11)
[2018-02-01] MEDS: Enoxaparin Inj 40 MG/0.4 ML Syringe SQ SCH (12:32)
--- NOTE | 2018-02-01 15:10 | P.PN ---
Subjective Interval history: Nursing reports that the patient has become much more impulsive in the last 24 hours. Patient has left the floor, is tiring security. Nursing reports it takes 6-8 patient. Per case management, patient has not been discharged because family does not want to take him at this time because they feel that he is too violent to go home. Responded nicely to haldol shot this AM. Physical Exam Vital signs: Vital Signs 01/31/18 16:00 01/31/18 20:00 02/01/18 00:00 Temperature 98.3 F 97.3 F L 97.2 F L Pulse Rate 108 H 121 H 111 H Respiratory Rate 18 16 17 Blood Pressure 125/66 128/82 104/56 L Pulse Oximetry 96 100 98 02/01/18 08:00 Temperature 97.4 F L Pulse Rate 94 H Respiratory Rate 22 Blood Pressure 130/93 H Pulse Oximetry 97 Intake & Output 01/31/18 02/01/18 02/01/18 18:59 06:59 18:59 Intake Total 960 / 960 750 / 750 Balance 960 / 960 750 / 750 Weight 73.4 kg Intake: Oral 960 / 960 750 / 750 Other: # Voids 5 4 Date of Last Bowel Movement 01/30/18 # Bowel Movements 1 Narrative: Patient seen ambulating call me up and down the hallway with his wheelchair and family member (after the Haldol shot earlier this morning), unlabored breathing Results - Labs CBC & Chem 7: 01/05/18 06:38 01/05/18 06:38 Assessment and Plan - Plan 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 Resting hand splint for right upper extremity per OT recommendations Extensive facial fractures -OMFS consulted ==> nonoperative management Intracranial bleed -CT the brain for any change in neurologic status -Seizure precautions Major neurocognitive disorder as late effect of traumatic brain injury with behavioral disturbance -Patient with periods of impulsiveness and agitation -Neuropsychology following --Fall precautions. Restrained patient as needed for patient safety -status post fall 12/25 despite close nursing supervision and bed alarm in place -Melatonin prn insomnia -Still very agitated intermittently and threatening staff readiness officer and family members as well despite regimen of seroquel 50 mg twice daily and 100 mg nightly -Wanted to give Vistaril but per most recent psychiatric recommendations to hold off on anticholinergics, starting trazodone 50 mg nightly. D/w psychiatry, per their recs will double dose of daytime twice daily Seroquel from 50 mg to 100 mg twice daily, maintain current dose of 150 mg at bedtime. Recheck Depakote level, ideal target is between 80s-100s. Ordering EKG to monitor QTC. DVT prophylaxis -Lovenox 40mg sq daily Discharge Planning: pending mood stability enough for pt to not be a harm to others.
[2018-02-01] MEDS ORDERED: Haloperidol Inj 5 MG/ML Ampul IM ONE (15:33)
[2018-02-01] MEDS: QUEtiapine 100 MG Tablet PO SCH ×2 (15:50→21:11)
[2018-02-01] MEDS: traZODone 50 MG Tablet PO SCH (21:10)
[2018-02-02] MEDS: QUEtiapine 100 MG Tablet PO SCH ×3 (08:22→20:24)
[2018-02-02] MEDS: Enoxaparin Inj 40 MG/0.4 ML Syringe SQ SCH (14:27)
--- NOTE | 2018-02-02 15:15 | P.PN ---
Subjective Interval history: Nursing denies any deterioration since last night. In fact nursing reports that the patient is very calm this morning. Father is also grateful that the patient's demeanor is much calmer this morning with no outbursts. Physical Exam Vital signs: Vital Signs 02/01/18 20:00 02/02/18 00:00 02/02/18 08:00 Temperature 97.9 F 97.6 F 97.3 F L Pulse Rate 120 H 112 H 135 H Respiratory Rate 20 20 20 Blood Pressure 105/57 L 110/64 106/67 Pulse Oximetry 97 95 96 Intake & Output 02/01/18 02/02/18 02/02/18 18:59 06:59 18:59 Intake Total 1400 / 1400 Balance 1400 / 1400 Intake: Oral 1400 / 1400 Other: # Voids 3 2 # Bowel Movements 2 Narrative: Patient sitting up in wheelchair, resting comfortably, not yelling out which is significant improvement for him Results - Labs CBC & Chem 7: 01/05/18 06:38 01/05/18 06:38 Assessment and Plan - Plan 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 Resting hand splint for right upper extremity per OT recommendations Extensive facial fractures -OMFS consulted ==> nonoperative management Intracranial bleed -CT the brain for any change in neurologic status -Seizure precautions Major neurocognitive disorder as late effect of traumatic brain injury with behavioral disturbance -Neuropsychology following -Fall precautions. Restrained patient as needed for patient safety -status post fall 12/25 despite close nursing supervision and bed alarm in place -Melatonin prn insomnia -Impulsive behavior much improved after increasing Seroquel dosing drastically per psychiatry recommendations. Can continue to try to titrate upwards if still having more outbursts. -continue trazodone hs -Patient initially refused Depakote level recheck, will see if he will comply this time DVT prophylaxis -Lovenox 40mg sq daily Discharge Planning: pending mood stability enough for pt to not be a harm to others.
[2018-02-02] MEDS: QUEtiapine 25 MG Tablet PO SCH (20:24)
[2018-02-02] MEDS: traZODone 50 MG Tablet PO SCH (20:24)
--- NOTE | 2018-02-03 08:50 | P.PNNPSY ---
- Progress Notes/Response to Treatment Time with Patient: 15 minutes Premorbid Psychological Status: Premorbid Cognitive, Emotional and Behavioral Status: Unstable. The patient has high school years of education and a minimal work history prior to this injury. The patient has prior psychiatric difficulties, as described above. Substance abuse history is significant. Behavioral Reactions of Patient and Family/Support System: Unstable. The patients family is experiencing ongoing issues of adjustment given the nature of the injury, and this aspect of recovery will require ongoing monitoring. Emotional/Behavioral Status of Patient and Family/Support System: Unstable. Pertinent issues, if appropriate to this patients clinical care, are described in detail above. Maximizing Acute Care Outcome: It is recommended that the patient be monitored for emergent behavioral impulsivity as the medical condition evolves. This patients neuropathological challenges may limit rehabilitation potential going forward, and these challenges will require specialized therapeutic skills to maximize outcome. Additionally, the patients family is experiencing ongoing issues of adjustment given the traumatic nature of the injury, and they may benefit from ongoing psychological assistance. At this point in the recovery process, the patient does not have cognitive capacity as the patient is unable to understand a situation and its likely consequences, nor is the patient able to manipulate information rationally. Cognitive capacity will be assessed throughout the recovery process. Anticipated Problems: Ongoing areas of concern will include behavioral impulsivity, lack of insight and judgment, which is expected to improve with time and treatment. Presently , the patient remains improving in terms of his agitation. Given the severity of the patient's injuries it is my clinical opinion that this patient will be unable to return to any type of productive employment for at least one year, perhaps longer and likely never. This patient is not considered safe to discharge home without supervision. Treatment Plan: This clinician will continue to follow with you throughout the course of this patients rehabilitation treatment, and I will be available to meet with the patients family/support system to facilitate their understanding and the ongoing care of their family member. The goals of neuropsychological intervention shall be both educational and supportive to the family/support system as is deemed clinically appropriate. Rancho [place]igos COG Scale: Level IV Disinhibition Score: 17.50 Aggression Score: 14.00 Lability Score: 14.00 Agitated Behavior Total Score: 16 Progress Note Narrative: PTD 83. The patient had a couple outbursts last Saturday, early Saturday, but he is now under control. Seroquel was increased to 100/100/150 along with VPA of 250 QID. Recent ABS is 16 (17.5,14,14), essentially the best scores to date. He is medicated Rancho IV, possibly manipulative Rancho V, consistent with his baseline characterological disposition. I will follow. - Diagnosis (1) Major neurocognitive disorder as late effect of traumatic brain injury with behavioral disturbance Status: Acute
[2018-02-03] MEDS: QUEtiapine 100 MG Tablet PO SCH ×3 (08:59→20:21)
--- NOTE | 2018-02-03 11:25 | P.PNNS ---
Subjective Interval history: 11/26: This morning the patient remains obtunded. Therapy is working with the patient when he is seen and he is not responding. The Therapist did say that the patient will move the left hand after she works with it and had rubbing of the thumb and index finger together. He did respond to noxious stimulation with the right upper and both lower extremities but not the left upper. He did have some pill rolling with the left hand after noxious stimulation. He did not follow any commands. There was no eye opening and the right pupil remained fixed and dilated with the left being sluggish. 11/27: The patient is lethargic vs obtunded this morning. This practitioner placed his hand in the patient's and waited a minute then asked the patient to squeeze which he did repetitively. The patient did move the right upper and both lower extremities to noxious stimulation, but not the left upper. There was very minimal partial eye opening noted. This practitioner again placed his hand in the patient's and waited a minute then asked the patient to squeeze but he did not do so this time. 11/28: This morning the patient is lethargic. He did open the left eye partially to voice but not the right. He did appear to give a thumbs up on the left to command but did not repeat it or follow any other command. He did move the right upper and both lower extremities to noxious stimulation but not the left upper. He is noted to have spontaneous movement of the left hand after the apparent thumbs up, that appeared to be nonpurposeful and at times pill rolling. The right pupil remains fixed and dilated but the left is reactive. 11/29: The patient had a tracheostomy and bronchoscopy at the bedside yesterday. That evening the patient went to the operating room for elevation and debridement of a right frontal closed depressed skull fracture. Post- operatively he returned to the ISC unit. When seen this morning the patient is sitting up in the cardiac chair. He is awake with the left eye partially open and looking about the room but only midline and to the left. He does have some spontaneous movement of the left hand but it is non-purposeful. He did not follow any commands. He did move the right upper and both lower extremities to noxious stimulation. The right pupil remains dilated and fixed with the left being reactive. He is still mechanically ventilated. 11/30: Nursing reports moving left side purposefully and reports may be a little more awake today. 12/01: drowsy, minimal eye opening today, withdraws left side. 12/02: When seen this morning the patient has the left eye opened and is spontaneously moving the left upper extremity. He does supervisor commissary production the pillow under the extremity and moves it. He did not follow any commands and only moved the right side extremities to noxious stimulation. There is no change in his pupils. 12/03: Patient asleep when seen but he does awaken and open his left eye to voice. He is spontaneously moving the left upper extremity and purposefully moved the extremity to remove this practitioner's hand when being given central noxious stimulation. He moved the right upper and both lower extremities to noxious stimulation. He did not follow any commands. Nursing did report he is in a mitten due to trying to pull out his PEG tube and pulling at his trach yesterday. 12/04: This morning the patient is awake and moving both of the left side extremities spontaneously. He did not follow any commands but did move all extremities to noxious stimulation. He continues to have the right pupil dilated and fixed with right eyelid ptosis. The left pupil is reactive. He continues to be trached and on a T-piece. 12/05: The patient is awake in bed and looking about the room when seen. It seems he did follow some commands with the left side. He was spontaneously moving the left side extremities as well. He responded to noxious stimulation but not as strongly as before. He is on a trach collar this morning. He did have an EEG done yesterday which demonstrated moderate encephalopathy. 12/09: This afternoon the patient is asleep when seen. He does open the left eye to voice. He will spontaneously move all extremities. He is trached and on a trach collar. He attempts to avoid having noxious stimulation to the left upper extremity and withdraws the others. He does attempt to push off this practitioner's hand as noxious stimulation is being applied to the right lower. Nursing reported that the patient did follow some commands intermittently earlier today. 12/10: When seen this morning the patient had his eyes open and was moving the left side spontaneously. After this practitioner was gowned, gloved and masked for droplet precautions the patient had his eyes closed as the room was entered. He opened the left to voice and followed commands with the left side extremities. He nodded his head "no" when asked if he could move the right side extremities. He did move them to noxious stimulation and nodded "yes" when asked if he felt it. He continues to have right eyelid ptosis. 12/24: This afternoon the patient is awake and alert, looking about the room. He has just been placed on the stretcher for transport to CT. He moves the left side extremities spontaneously and all to command. He continues to have right ptosis. He is verbalising with a few words. Nursing reports that the patient is either asleep or very active trying to get out of bed when awake with no middle ground. 12/30: The patient is agitated and heard screaming from outside the room. His Nurse reports that he has been this way since she came on this morning, even after he received his Seroquel. The patient was cooperative when seen and talked with this practitioner. He frequently asked to have the crib opened and let him. Then he started saying that he had to do something, changing what he needed each time - to have a bowel movement, make a phone call, etc. He is moving all extremities but decreased to the right upper. He continues to have a deficit to the right eye and eyelid. 01/06: The patient is seen up and ambulating with Physical Therapy using a front wheeled walker this afternoon. He had no complaints when seen. His motor strength is normal to the left side, the right lower is weaker and his ankle was seen to roll when ambulating. He still has decreased use of the right upper. 01/13: Today the patient is sitting on the side of the bed getting ready to eat lunch. His father is present to help him. He is talking in short sentences and frequently asks the same questions over. He does move all extremities fairly strong except for the right upper which is weak. 01/20: Complains of nausea. Patient is status post elevation of depressed skull fracture. Status post TBI with cerebral contusion. 02/03: This morning the patient is asleep in bed. He does awaken to voice and readily interacts. He denies any headache or dizziness. He has no extremity pain , numbness or tingling. He does continue to fixate on one thing when talking with him. His neuro exam is stable. <Delvin Barrett E - Last Filed: 02/03/18 12:04> Physical Exam Vital signs: Vital Signs 02/02/18 16:00 02/02/18 20:00 Temperature 97.2 F L 97.4 F L Pulse Rate 106 H 121 H Respiratory Rate 20 20 Blood Pressure 99/57 L 123/67 Pulse Oximetry 96 97 Intake & Output 02/02/18 02/03/18 02/03/18 18:59 06:59 18:59 Intake Total 2400 / 2400 Balance 2400 / 2400 Intake: Oral 2400 / 2400 Other: # Voids 4 2 # Bowel Movements 1 Narrative: GENERAL: The patient is asleep in bed but does wake up to voice. His affect is essentially flat. He readily interacts. He is not in any distress. HEENT: Right scalp surgical incision & STUART drain insertion site healed w/o complication. Right ptosis. Right pupil fixed & dilated and left pupil 4 mm reactive. SKIN: Right scalp surgical incision & STUART drain insertion site healed w/o complication. MUSCULOSKELETAL: SORIANO spontaneously & to command. Limited movement w/RUE. No evident clubbing or deformity. NEUROLOGICAL: Awake & alert. Right eyelid ptosis. Right pupil fixed & dilated and left pupil 4 mm reactive. Verbalises in sentences, does fixate on one thing and repetitive asks it. Spontaneously SORIANO. Normal strength left-sided extremities, RLE 4+/5, RUE 3+ to4/5. 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 Traumatic brain injury 2. Mildly depressed right frontal bone fracture 3. Extensive facial fractures Initial ICP 3-5 with good waveform. Patient received mannitol 25 grams in ED before going to CT scanner due to fixed & dilated right pupil. Postoperative Diagnosis: (1) Traumatic brain injury () (2) Skull fracture () - Right frontal closed depressed skull fracture Respiratory failure, traumatic brain injury. () Patient is doing well. His neuro exam is stable. He continues to have a right CN III deficit. Past 24 hrs: Afebrile. Tachycardiac. No labs for today. CT brain w/o any intracranial blood products identified. Right frontal lobe & right basal ganglia w/low density c/w developing encephalomalacia. Remodeling & healing of right frontal bone and right orbit fracture. : Right frontal twist drill for intracranial pressure monitor placement (D/c'd ) : EGD with PEG placement : [place] Rhino tracheostomy and bronchoscopy. : Elevation and debridement right frontal closed depressed skull fracture (STUART drain d/c'd ) Plan: Primary & critical care management per Trauma. Continue Occupational, Physical & Speech Therapy. Seizure prophylaxis. No further neurosurgical intervention planned. Will intermittently follow since no active issues for Neurosurgery. <Delvin Barrett - Last Filed: 02/03/18 12:04> - Assessment (1) Closed traumatic brain injury with depressed frontal skull fracture Code(s): S02.0XXA - Fracture of vault of skull, initial encounter for closed fracture; S06.9X9A - Unspecified intracranial injury with loss of consciousness of unspecified duration, initial encounter Status: Acute Qualifiers: Encounter type: subsequent encounter - Attending Attestation The exam, history, and the medical decision-making described in the above note were completed with the assistance of the mid-level provider. I reviewed and agree with the findings presented. I attest that I had a [id number] encounter with the patient on the same day, and personally performed and documented my assessment and findings in the medical record. <Fran Garcia - Last Filed: 03/24/18 22:05>
--- NOTE | 2018-02-03 12:15 | ECG ---
Date Performed: 02/01/2018 Time Performed: 15:45:51 PTAGE: 28 years EKG: SINUS TACHYCARDIA ABNORMAL RHYTHM ECG PREVIOUS TRACING : 11/13/2017 13.44 DOCTOR: Rocky Myers Interpretating Date/Time 02/03/2018 12:06:57
[2018-02-03] MEDS: Enoxaparin Inj 40 MG/0.4 ML Syringe SQ SCH (14:08)
--- NOTE | 2018-02-03 15:24 | P.PN ---
Subjective Interval history: Nursing denies any deterioration since last night. No new complaints today. Physical Exam Vital signs: Vital Signs 02/02/18 16:00 02/02/18 20:00 02/03/18 08:00 Temperature 97.2 F L 97.4 F L 97.3 F L Pulse Rate 106 H 121 H 104 H Respiratory Rate 20 20 18 Blood Pressure 99/57 L 123/67 110/57 L Pulse Oximetry 96 97 98 02/03/18 12:00 Temperature 97.6 F Pulse Rate 120 H Respiratory Rate 17 Blood Pressure 105/55 L Pulse Oximetry 98 Intake & Output 02/02/18 02/03/18 02/03/18 18:59 06:59 18:59 Intake Total 2400 / 2400 Balance 2400 / 2400 Intake: Oral 2400 / 2400 Other: # Voids 4 2 # Bowel Movements 1 Narrative: Quietly being pushed around in wheelchair, unlabored breathing, no acute distress, calm demeanor today Results - Labs CBC & Chem 7: 01/05/18 06:38 01/05/18 06:38 Laboratory Results - last 24 hr 02/02/18 21:32 Valproic Acid 79 Assessment and Plan - Plan 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 Resting hand splint for right upper extremity per OT recommendations Extensive facial fractures -OMFS consulted ==> nonoperative management Intracranial bleed -CT the brain for any change in neurologic status -Seizure precautions Major neurocognitive disorder as late effect of traumatic brain injury with behavioral disturbance -Neuropsychology following -Fall precautions. Restrained patient as needed for patient safety -status post fall 12/25 despite close nursing supervision and bed alarm in place -Melatonin prn insomnia -Stabilized impulsive behavior on high-dose Seroquel, check EKG once a week to evaluate for QTC prolongation, most recently EKG QTC was within normal limits -continue trazodone hs - Depakote levels are just under the cusp of desired 79, preferred 80-100. DVT prophylaxis -Lovenox 40mg sq daily Discharge Planning: pending mood stability enough for pt to not be a harm to others.
[2018-02-03] MEDS: traZODone 50 MG Tablet PO SCH (20:21)
[2018-02-03] MEDS: QUEtiapine 25 MG Tablet PO SCH (20:21)
[2018-02-03] MEDS: Melatonin 5 MG Tablet PO PRN (21:58)
--- NOTE | 2018-02-04 08:34 | P.PNNPSY ---
- Behavior Intact: Impulsive/agitated - Cognitive Severe: Cognitive, Attention/concentration, Confused/orientation, Insight/ awareness, Judgment/problem solving, Memory - Psychosocial Severe: Psychosocial, Family/other adjustment, Realistic expectation, Self- esteem/confidence - Progress Notes/Response to Treatment Contents of Sessions: Adjustment, Level of consciousness Premorbid Psychological Status: Premorbid Cognitive, Emotional and Behavioral Status: Unstable. The patient has high school years of education and a minimal work history prior to this injury. The patient has prior psychiatric difficulties, as described above. Substance abuse history is significant. Behavioral Reactions of Patient and Family/Support System: Unstable. The patients family is experiencing ongoing issues of adjustment given the nature of the injury, and this aspect of recovery will require ongoing monitoring. Emotional/Behavioral Status of Patient and Family/Support System: Unstable. Pertinent issues, if appropriate to this patients clinical care, are described in detail above. Maximizing Acute Care Outcome: It is recommended that the patient be monitored for emergent behavioral impulsivity as the medical condition evolves. This patients neuropathological challenges may limit rehabilitation potential going forward, and these challenges will require specialized therapeutic skills to maximize outcome. Additionally, the patients family is experiencing ongoing issues of adjustment given the traumatic nature of the injury, and they may benefit from ongoing psychological assistance. At this point in the recovery process, the patient does not have cognitive capacity as the patient is unable to understand a situation and its likely consequences, nor is the patient able to manipulate information rationally. Cognitive capacity will be assessed throughout the recovery process. Anticipated Problems: Ongoing areas of concern will include behavioral impulsivity, lack of insight and judgment, which is expected to improve with time and treatment. Presently , the patient remains improving in terms of his agitation. Given the severity of the patient's injuries it is my clinical opinion that this patient will be unable to return to any type of productive employment for at least one year, perhaps longer and likely never. This patient is not considered safe to discharge home without supervision. Treatment Plan: This clinician will continue to follow with you throughout the course of this patients rehabilitation treatment, and I will be available to meet with the patients family/support system to facilitate their understanding and the ongoing care of their family member. The goals of neuropsychological intervention shall be both educational and supportive to the family/support system as is deemed clinically appropriate. [place] COG Scale: Level V Disinhibition Score: 19.25 Aggression Score: 14.00 Lability Score: 14.00 Agitated Behavior Total Score: 17 Progress Note Narrative: PTD 84. The patient remains generally neurobehaviorally stable. His recent ABS is 17 (19.3,14,14). He is managed on Seroquel 100/100/150, VPA 250 QID and Trazodone 50 HS. Noted that the lab results for VPA was at threshold, but it is to be recalled that VPA for this patient is being given for neurobehavioral control, not seizure control, and as such is titrated to desired clinical effect , which we now have. 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 I will follow. - Diagnosis (1) Major neurocognitive disorder as late effect of traumatic brain injury with behavioral disturbance Status: Acute
[2018-02-04] MEDS: QUEtiapine 100 MG Tablet PO SCH ×3 (09:28→20:04)
[2018-02-04] MEDS: Enoxaparin Inj 40 MG/0.4 ML Syringe SQ SCH (10:46)
--- NOTE | 2018-02-04 16:40 | P.PN ---
Subjective Interval history: Nursing denies any deterioration since last night. Patient overall calm today. Is able to stand but still needs assistance with walking Physical Exam Vital signs: Vital Signs 02/03/18 20:00 02/04/18 08:00 02/04/18 12:00 Temperature 98.1 F 97.3 F L 97.3 F L Pulse Rate 113 H 102 H 124 H Respiratory Rate Blood Pressure 126/73 102/63 118/73 Pulse Oximetry 95 98 98 Intake & Output 02/03/18 02/04/18 02/04/18 18:59 06:59 18:59 Intake Total 600 / 600 240 / 240 Output Total 4 / 4 Balance 596 / 596 240 / 240 Intake: Oral 600 / 600 240 / 240 Output: Urine 4 / Other: # Voids 3 # Bowel Movements 1 Narrative: Sitting in wheelchair, no acute distress, calm demeanor Results - Labs CBC & Chem 7: 01/05/18 06:38 01/05/18 06:38 Assessment and Plan - Plan 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 Resting hand splint for right upper extremity per OT recommendations Extensive facial fractures -OMFS consulted ==> nonoperative management Intracranial bleed -CT the brain for any change in neurologic status -Seizure precautions Major neurocognitive disorder as late effect of traumatic brain injury with behavioral disturbance -Neuropsychology following -Fall precautions. Restrained patient as needed for patient safety -status post fall 12/25 despite close nursing supervision and bed alarm in place -Melatonin prn insomnia -Stabilized impulsive behavior on high-dose Seroquel, check EKG once a week to evaluate for QTC prolongation, most recently EKG QTC was within normal limits -continue trazodone hs - Depakote levels are just under the cusp of desired 79, preferred 80-100. DVT prophylaxis -Lovenox 40mg sq daily Discharge Planning: Case management update is that the patient's mother has been informed that she has to use the patient's savings towards placement. Particular facility is evaluating the patient currently. Mother is healthcare surrogate.
[2018-02-04] MEDS: traZODone 50 MG Tablet PO SCH (20:04)
[2018-02-04] MEDS: Melatonin 5 MG Tablet PO PRN (20:04)
[2018-02-04] MEDS: QUEtiapine 25 MG Tablet PO SCH (20:04)
--- NOTE | 2018-02-05 08:45 | P.PNNPSY ---
- Behavior Mild: Impulsive/agitated - Cognitive Severe: Cognitive, Attention/concentration, Confused/orientation, Insight/ awareness, Judgment/problem solving, Memory - Psychosocial Severe: Psychosocial, Family/other adjustment, Realistic expectation, Self- esteem/confidence - Progress Notes/Response to Treatment Contents of Sessions: Adjustment, Level of consciousness Time with Patient: 30 minutes Premorbid Psychological Status: Premorbid Cognitive, Emotional and Behavioral Status: Unstable. The patient has high school years of education and a minimal work history prior to this injury. The patient has prior psychiatric difficulties, as described above. Substance abuse history is significant. Behavioral Reactions of Patient and Family/Support System: Unstable. The patients family is experiencing ongoing issues of adjustment given the nature of the injury, and this aspect of recovery will require ongoing monitoring. Emotional/Behavioral Status of Patient and Family/Support System: Unstable. Pertinent issues, if appropriate to this patients clinical care, are described in detail above. Maximizing Acute Care Outcome: It is recommended that the patient be monitored for emergent behavioral impulsivity as the medical condition evolves. This patients neuropathological challenges may limit rehabilitation potential going forward, and these challenges will require specialized therapeutic skills to maximize outcome. Additionally, the patients family is experiencing ongoing issues of adjustment given the traumatic nature of the injury, and they may benefit from ongoing psychological assistance. At this point in the recovery process, the patient does not have cognitive capacity as the patient is unable to understand a situation and its likely consequences, nor is the patient able to manipulate information rationally. Cognitive capacity will be assessed throughout the recovery process. Anticipated Problems: Ongoing areas of concern will include behavioral impulsivity, lack of insight and judgment, which is expected to improve with time and treatment. Presently , the patient remains improving in terms of his agitation. Given the severity of the patient's injuries it is my clinical opinion that this patient will be unable to return to any type of productive employment for at least one year, perhaps longer and likely never. This patient is not considered safe to discharge home without supervision. Treatment Plan: This clinician will continue to follow with you throughout the course of this patients rehabilitation treatment, and I will be available to meet with the patients family/support system to facilitate their understanding and the ongoing care of their family member. The goals of neuropsychological intervention shall be both educational and supportive to the family/support system as is deemed clinically appropriate. [place] COG Scale: Level V Disinhibition Score: 26.25 Aggression Score: 21.00 Lability Score: 18.66 Agitated Behavior Total Score: 23 Progress Note Narrative: PTD 85. The patient being increasingly more agitated/restless yesterday with his ABS showing 23 (26.3,21,18.6). However, on the floor today, nursing said that he has been compliant and well behaved. He remains on Seroquel 100/100/150 , VPA 250 BID and Trazodone 50 HS. Yesterday, he was attempting to bargain with this provider to be allowed off the unit, and he was told that this privilege was rescinded because of his ongoing behavioral issues. In my clinical opinion, this patient is now a Rancho V, although he becomes agitated, the agitation/restlessness has a manipulative quality to it and as such is directed; he remains neurocognitively impaired. I will follow. - Diagnosis (1) Major neurocognitive disorder as late effect of traumatic brain injury with behavioral disturbance Status: Acute
[2018-02-05] MEDS: QUEtiapine 100 MG Tablet PO SCH ×3 (09:06→21:34)
[2018-02-05] MEDS: Enoxaparin Inj 40 MG/0.4 ML Syringe SQ SCH (10:30)
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
[2018-02-05] MEDS: traZODone 50 MG Tablet PO SCH (21:34)
[2018-02-05] MEDS: QUEtiapine 25 MG Tablet PO SCH (21:34)
[2018-02-05] MEDS: Melatonin 5 MG Tablet PO PRN (21:35)
--- NOTE | 2018-02-06 08:33 | P.PNNPSY ---
- Emotional Moderate: Labile - Behavior Mild: Impulsive/agitated - Cognitive Severe: Cognitive, Attention/concentration, Confused/orientation, Insight/ awareness, Judgment/problem solving, Memory - Psychosocial Severe: Psychosocial, Family/other adjustment, Realistic expectation - Progress Notes/Response to Treatment Contents of Sessions: Adjustment, Level of consciousness Time with Patient: 15 minutes Premorbid Psychological Status: Premorbid Cognitive, Emotional and Behavioral Status: Unstable. The patient has high school years of education and a minimal work history prior to this injury. The patient has prior psychiatric difficulties, as described above. Substance abuse history is significant. Behavioral Reactions of Patient and Family/Support System: Unstable. The patients family is experiencing ongoing issues of adjustment given the nature of the injury, and this aspect of recovery will require ongoing monitoring. Emotional/Behavioral Status of Patient and Family/Support System: Unstable. Pertinent issues, if appropriate to this patients clinical care, are described in detail above. Maximizing Acute Care Outcome: It is recommended that the patient be monitored for emergent behavioral impulsivity as the medical condition evolves. This patients neuropathological challenges may limit rehabilitation potential going forward, and these challenges will require specialized therapeutic skills to maximize outcome. Additionally, the patients family is experiencing ongoing issues of adjustment given the traumatic nature of the injury, and they may benefit from ongoing psychological assistance. At this point in the recovery process, the patient does not have cognitive capacity as the patient is unable to understand a situation and its likely consequences, nor is the patient able to manipulate information rationally. Cognitive capacity will be assessed throughout the recovery process. Anticipated Problems: Ongoing areas of concern will include behavioral impulsivity, lack of insight and judgment, which is expected to improve with time and treatment. Presently , the patient remains improving in terms of his agitation. Given the severity of the patient's injuries it is my clinical opinion that this patient will be unable to return to any type of productive employment for at least one year, perhaps longer and likely never. This patient is not considered safe to discharge home without supervision. Treatment Plan: This clinician will continue to follow with you throughout the course of this patients rehabilitation treatment, and I will be available to meet with the patients family/support system to facilitate their understanding and the ongoing care of their family member. The goals of neuropsychological intervention shall be both educational and supportive to the family/support system as is deemed clinically appropriate. [place] COG Scale: Level V Disinhibition Score: 29.75 Aggression Score: 24.50 Lability Score: 32.66 Agitated Behavior Total Score: 29 Progress Note Narrative: PTD86. The patient is neurobehaviorally improving. His recent ABS was 29 (29.8 ,24.5, 32.7) with the main drivers being disinhibition and lability, not aggression. The former subscore reflects residual neuropathology from the TBI and the latter is more a reflection of his baseline state exacerbated by his TBI. He has been quite compliant on the unit, doing what he is told to do, and he would benefit from more therapeutic activities. He is considered more of a Rancho V than a IV at this point, not agitated in the traditional sense, but confused and becoming restless, etc (as reflected in the above scores) when his goal-directed activities are thwarted. He is presently managed on Seroquel 100/ 100/150, VPA 250 QID, and Trazodone 50 HS. He has not required Haldol PRN since 02/01, further supporting the contention that he is more a V than a IV, and that he is able to be redirected. I will follow. - Diagnosis (1) Major neurocognitive disorder as late effect of traumatic brain injury with behavioral disturbance Status: Acute
[2018-02-06] MEDS: QUEtiapine 100 MG Tablet PO SCH ×3 (09:21→20:11)
[2018-02-06] MEDS: Enoxaparin Inj 40 MG/0.4 ML Syringe SQ SCH (10:26)
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
--- NOTE | 2018-02-06 19:19 | ECG ---
Date Performed: 02/06/2018 Time Performed: 10:17:20 PTAGE: 28 years EKG: Sinus rhythm NORMAL ECG PREVIOUS TRACING : 02/01/2018 15.45 Since the previous tracing, no significant change noted DOCTOR: Raul Quan Interpretating Date/Time 02/06/2018 19:18:30
[2018-02-06] MEDS: QUEtiapine 25 MG Tablet PO SCH (20:10)
[2018-02-06] MEDS: traZODone 50 MG Tablet PO SCH (20:11)
[2018-02-06] MEDS: Melatonin 5 MG Tablet PO PRN (23:17)
[2018-02-07] MEDS: QUEtiapine 100 MG Tablet PO SCH ×3 (09:00→20:17)
[2018-02-07 09:33] LABS: Baso # (Auto) 0.1 th/mm3 (0.0-0.2); Baso % (Auto) 0.9 % (0.0-2.0); Eos # (Auto) 0.1 th/mm3 (0.0-0.4); Eos % (Auto) 2.1 % (0.0-4.0); Hematocrit 47.5 % (39.0-51.0); Lymph % (Auto) 30.9 % (9.0-44.0); Mean Corpuscular HGB Conc 33.6 % (32.0-36.0); Mean Corpuscular Volume 95.2 fL (80.0-100.0); Mean Platelet Volume 7.4 fL (7.0-11.0); Mono # (Auto) 0.9 th/mm3 (0.0-0.9); Mono % (Auto) 13.3 % (0.0-8.0); Neut # (Auto) 3.5 th/mm3 (1.8-7.7); Neut % (Auto) 52.8 % (16.0-70.0); Platelet Count 338 th/mm3 (150-450); Red Blood Count 4.99 mil/mm3 (4.50-5.90); Red Cell Distribution Width 16.2 % (11.6-17.2); White Blood Count 6.6 th/mm3 (4.0-11.0)
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
[2018-02-07 09:55] LABS: Anion Gap 9 meq/L (5-15); Blood Urea Nitrogen 14 mg/dL (7-18); Calcium 9.6 mg/dL (8.5-10.1); Carbon Dioxide 28.5 meq/L (21.0-32.0); Chloride 106 meq/L (98-107); Glomerular Filtration Rate Greater Than 89 mL/min (>89); Glucose,Random 95 mg/dL (74-106); Potassium 3.8 meq/L (3.5-5.1); Sodium 143 meq/L (136-145)
[2018-02-07] MEDS: Enoxaparin Inj 40 MG/0.4 ML Syringe SQ SCH (12:14)
[2018-02-07] MEDS: QUEtiapine 25 MG Tablet PO SCH (20:17)
[2018-02-07] MEDS: traZODone 50 MG Tablet PO SCH (20:17)
[2018-02-07] MEDS: Melatonin 5 MG Tablet PO PRN (20:22)
[2018-02-08] MEDS: QUEtiapine 100 MG Tablet PO SCH ×3 (08:41→20:04)
--- NOTE | 2018-02-08 10:46 | P.PNIM ---
Subjective Interval history: Mr. Suh was afebrile with mild tachycardia overnight. Patient reports desire to go home whenever possible. He does not report new complaints and states he is otherwise doing well. Physical Exam Vital signs: Vital Signs 02/07/18 12:00 02/07/18 20:00 02/08/18 08:00 Temperature 97.2 F L 98.1 F 97.6 F Pulse Rate 112 H 105 H 110 H Respiratory Rate 16 17 17 Blood Pressure 112/60 114/71 132/65 Pulse Oximetry 96 97 Intake & Output 02/07/18 02/08/18 02/08/18 18:59 06:59 18:59 Intake Total 0 / 0 480 / 480 Balance 0 / 0 480 / 480 Intake: Oral 480 / 480 Other 0 / 0 Other: # Voids 3 Narrative: Gen: no acute distress Skin: No visible lesions HEENT: R eye closed. Normal oral mucosa. Neuro/Psych: Patient awake/alert; responsive to questioning. Some frustration regarding being at hospital but appropriate MSK: patient seen ambulating some in queen pushing wheelchair. Grossly normal motor function and ROM CV: Grossly normal perfusion. 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 Resting hand splint ordered for right upper extremity per OT recommendations (2) Extensive facial fractures Code(s): S02.92XA - Unspecified fracture of facial bones, initial encounter for closed fracture Status: Acute Plan: OMFS consulted, nonoperative management (3) Intracranial bleed Code(s): I62.9 - Nontraumatic intracranial hemorrhage, unspecified Status: Acute Plan: CT the brain for any change in neurologic status Seizure precautions (4) Major neurocognitive disorder as late effect of traumatic brain injury with behavioral disturbance Code(s): S06.9X9S - Unspecified intracranial injury with loss of consciousness of unspecified duration, sequela; F02.81 - Dementia in other diseases classified elsewhere with behavioral disturbance Status: Acute Plan: Patient with periods of impulsiveness and agitation Neuropsychology following Continue on Seroquel 50 mg twice daily and 100 mg nightly Fall precautions. Restrained patient as needed for patient safety -status post fall 12/25 despite close nursing supervision and bed alarm in place Trial of Melatonin prn insomnia - good results last night, continue. - Plan Mr. Suh is a 28 yo M with traumatic brain injury/depressed frontal skull fracture: RIGHT frontal depressed skull fx Basal skull fx RIGHT ICH SDH, SAH with encephalopathy 11/12 - 11/23 s/p bolt placement -Neurosurgery following peripherally, no further neurosurgical intervention at this point -CT brain for any change in neurologic status -Continue seizure precautions -Continue on valproic acid 250 mg 4 times daily -Continue with PT/OT/ST. Major neurocognitive disorder as late effect of traumatic brain injury with behavioral disturbance -Neuropsychology following -Some neurobehavioral improvement; difficulty with disinhibition/lability rather than aggression -Continue Seroquel 100mg/100mg/150mg -Continue Valproic Acid 250mg QID (last levels ) -Continue Trazodone 50mg HS -Haldol PRN (has not needed since 02/01) -Fall precautions -Melatonin prn insomnia -check EKG once a week to evaluate for QTC prolongation -most recently EKG QTC was within normal limits (02/06) Extensive facial fractures -OMFS consulted ==> nonoperative management MSK RUE pain Resting hand splint for right upper extremity per OT recommendations Knee pain Impression: Improved today; patient denies complaints. Physical exam 02/06 benign with exception of pain; ambulating well and does not seem to limit PT activity. -Patient may use knee brace if desired Hep C antibody + 11/2017; mild LFT elevations -Will plan to discuss with mother/patient regarding f/u testing and f/u plans after discharge DVT prophylaxis -Lovenox 40mg sq daily Discharge Planning: Mother is surrogate. 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
[2018-02-08] MEDS: Enoxaparin Inj 40 MG/0.4 ML Syringe SQ SCH (11:30)
[2018-02-08] MEDS: traZODone 50 MG Tablet PO SCH (20:04)
[2018-02-08] MEDS: QUEtiapine 25 MG Tablet PO SCH (20:04)
[2018-02-08] MEDS: Melatonin 5 MG Tablet PO PRN (20:05)
[2018-02-09] MEDS: QUEtiapine 100 MG Tablet PO SCH ×3 (09:55→20:00)
--- NOTE | 2018-02-09 10:33 | P.PNIM ---
Subjective Interval history: Mr. Suh was afebrile with intermittent tachycardia overnight. Patient states he is doing well without concerns. Patient expresses desire to leave the hospital as soon as possible Physical Exam Vital signs: Vital Signs 02/08/18 12:00 02/08/18 20:00 02/09/18 00:00 Temperature 97.6 F 97.6 F 98.3 F Pulse Rate 118 H 106 H 87 Respiratory Rate 17 20 18 Blood Pressure 108/77 117/72 105/56 L Pulse Oximetry 96 98 97 02/09/18 04:00 Temperature 97.6 F Pulse Rate 85 Respiratory Rate 18 Blood Pressure 98/54 L Pulse Oximetry 96 Intake & Output 02/08/18 02/09/18 02/09/18 18:59 06:59 18:59 Intake Total 1200 / 1200 640 / 640 Balance 1200 / 1200 640 / 640 Intake: Oral 1200 / 1200 640 / 640 Other: # Voids 2 Narrative: Gen: no acute distress Skin: No visible lesions HEENT: R eye closed. Normal oral mucosa. Neuro/Psych: Patient awake/alert; responsive to questioning. impulsive speech; repetitive expression of desire to leave hospital MSK: patient seen ambulating some in queen pushing wheelchair. Grossly normal motor function and ROM CV: Grossly normal perfusion. 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 Resting hand splint ordered for right upper extremity per OT recommendations (2) Extensive facial fractures Code(s): S02.92XA - Unspecified fracture of facial bones, initial encounter for closed fracture Status: Acute Plan: OMFS consulted, nonoperative management (3) Intracranial bleed Code(s): I62.9 - Nontraumatic intracranial hemorrhage, unspecified Status: Acute Plan: CT the brain for any change in neurologic status Seizure precautions (4) Major neurocognitive disorder as late effect of traumatic brain injury with behavioral disturbance Code(s): S06.9X9S - Unspecified intracranial injury with loss of consciousness of unspecified duration, sequela; F02.81 - Dementia in other diseases classified elsewhere with behavioral disturbance Status: Acute Plan: Patient with periods of impulsiveness and agitation Neuropsychology following Continue on Seroquel 50 mg twice daily and 100 mg nightly Fall precautions. Restrained patient as needed for patient safety -status post fall 12/25 despite close nursing supervision and bed alarm in place Trial of Melatonin prn insomnia - good results last night, continue. - Plan Mr. Suh is a 28 yo M with traumatic brain injury/depressed frontal skull fracture: RIGHT frontal depressed skull fx Basal skull fx RIGHT ICH SDH, SAH with encephalopathy 11/12 - 11/23 s/p bolt placement -Neurosurgery following peripherally, no further neurosurgical intervention at this point -CT brain for any change in neurologic status -Continue seizure precautions -Continue on valproic acid 250 mg 4 times daily -Continue with PT/OT/ST. Major neurocognitive disorder as late effect of traumatic brain injury with behavioral disturbance -Neuropsychology following -Some neurobehavioral improvement; difficulty with disinhibition/lability rather than aggression -Continue Seroquel 100mg/100mg/150mg -Continue Valproic Acid 250mg QID (last levels 79) -Continue Trazodone 50mg HS -Haldol PRN (has not needed since 02/01) -Fall precautions -Melatonin prn insomnia -check EKG once a week to evaluate for QTC prolongation -most recently EKG QTC was within normal limits (02/06) Extensive facial fractures -OMFS consulted ==> nonoperative management MSK RUE pain Resting hand splint for right upper extremity per OT recommendations Knee pain Impression: Improved today; patient denies complaints. Physical exam 02/06 benign with exception of pain; ambulating well and does not seem to limit PT activity. -Patient may use knee brace if desired Hep C antibody + 11/2017; mild LFT elevations -Will check RNA load/genotype prior to discharge; will need to arrange f/u plans DVT prophylaxis -Lovenox 40mg sq daily Discharge Planning: Mother is surrogate. 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
[2018-02-09] MEDS: Enoxaparin Inj 40 MG/0.4 ML Syringe SQ SCH (11:00)
[2018-02-09] MEDS: QUEtiapine 25 MG Tablet PO SCH (20:00)
[2018-02-09] MEDS: traZODone 50 MG Tablet PO SCH (20:00)
[2018-02-09] MEDS: Melatonin 5 MG Tablet PO PRN (20:01)
--- NOTE | 2018-02-10 08:36 | P.PNNPSY ---
- Behavior Intact: Impulsive/agitated - Cognitive Severe: Cognitive, Attention/concentration, Confused/orientation, Insight/ awareness, Judgment/problem solving, Memory - Psychosocial Severe: Psychosocial, Family/other adjustment, Realistic expectation - Progress Notes/Response to Treatment Contents of Sessions: Adjustment, Level of consciousness Time with Patient: 15 minutes Premorbid Psychological Status: Premorbid Cognitive, Emotional and Behavioral Status: Unstable. The patient has high school years of education and a minimal work history prior to this injury. The patient has prior psychiatric difficulties, as described above. Substance abuse history is significant. Behavioral Reactions of Patient and Family/Support System: Unstable. The patients family is experiencing ongoing issues of adjustment given the nature of the injury, and this aspect of recovery will require ongoing monitoring. Emotional/Behavioral Status of Patient and Family/Support System: Unstable. Pertinent issues, if appropriate to this patients clinical care, are described in detail above. Maximizing Acute Care Outcome: It is recommended that the patient be monitored for emergent behavioral impulsivity as the medical condition evolves. This patients neuropathological challenges may limit rehabilitation potential going forward, and these challenges will require specialized therapeutic skills to maximize outcome. Additionally, the patients family is experiencing ongoing issues of adjustment given the traumatic nature of the injury, and they may benefit from ongoing psychological assistance. At this point in the recovery process, the patient does not have cognitive capacity as the patient is unable to understand a situation and its likely consequences, nor is the patient able to manipulate information rationally. Cognitive capacity will be assessed throughout the recovery process. Anticipated Problems: Ongoing areas of concern will include behavioral impulsivity, lack of insight and judgment, which is expected to improve with time and treatment. Presently , the patient remains improving in terms of his agitation. Given the severity of the patient's injuries it is my clinical opinion that this patient will be unable to return to any type of productive employment for at least one year, perhaps longer and likely never. This patient is not considered safe to discharge home without supervision. Treatment Plan: This clinician will continue to follow with you throughout the course of this patients rehabilitation treatment, and I will be available to meet with the patients family/support system to facilitate their understanding and the ongoing care of their family member. The goals of neuropsychological intervention shall be both educational and supportive to the family/support system as is deemed clinically appropriate. [place] COG Scale: Level V Disinhibition Score: 22.75 Aggression Score: 21.00 Lability Score: 18.66 Agitated Behavior Total Score: 21 Progress Note Narrative: PTD 90. The patient is borderline neurobehaviorally. Recent ABS is 21 (22.7, 21 , 18.7). He is [place]. He awaits transfer to a rehab facility. However, if he does not transfer, an equally viable option at this point is for him to discharge home, and then return for outpatient therapies. No other issues. He remains on Seroquel 100/100/150, VPA 250 QID and Trazodone 50HS. I will follow. - Diagnosis (1) Major neurocognitive disorder as late effect of traumatic brain injury with behavioral disturbance Status: Acute
[2018-02-10] MEDS: QUEtiapine 100 MG Tablet PO SCH (09:05)
--- NOTE | 2018-02-10 09:36 | P.PNIM ---
Subjective Interval history: Mr. Suh was afebrile with stable vital signs overnight. Patient denies new complaints overnight but states that he plans to go home today and is frustrated that he is still in the hospital. Physical Exam Vital signs: Vital Signs 02/09/18 12:00 02/09/18 16:00 02/09/18 20:00 Temperature 98.1 F 98.1 F 98.1 F Pulse Rate 113 H 113 H 115 H Respiratory Rate 17 17 18 Blood Pressure 109/61 125/69 123/64 Pulse Oximetry 98 96 96 02/10/18 00:00 02/10/18 04:00 Temperature 98.5 F 97.4 F L Pulse Rate 88 89 Respiratory Rate 18 20 Blood Pressure 104/53 L 107/54 L Pulse Oximetry 97 96 Intake & Output 02/09/18 02/10/18 02/10/18 18:59 06:59 18:59 Intake Total 1400 / 1400 360 / 360 Balance 1400 / 1400 360 / 360 Weight 82.6 kg Intake: Oral 1400 / 1400 360 / 360 Other: # Voids 4 4 Date of Last Bowel Movement 02/07/18 02/10/18 # Bowel Movements 1 2 Narrative: Gen: no acute distress Skin: No visible lesions HEENT: R eye closed. Normal oral mucosa. Neuro/Psych: Patient awake/alert; responsive to questioning. Patient adamant on desire to leave hospital MSK: patient seen ambulating some in queen pushing wheelchair. Grossly normal motor function and ROM CV: Grossly normal perfusion. 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 Resting hand splint ordered for right upper extremity per OT recommendations (2) Extensive facial fractures Code(s): S02.92XA - Unspecified fracture of facial bones, initial encounter for closed fracture Status: Acute Plan: OMFS consulted, nonoperative management (3) Intracranial bleed Code(s): I62.9 - Nontraumatic intracranial hemorrhage, unspecified Status: Acute Plan: CT the brain for any change in neurologic status Seizure precautions (4) Major neurocognitive disorder as late effect of traumatic brain injury with behavioral disturbance Code(s): S06.9X9S - Unspecified intracranial injury with loss of consciousness of unspecified duration, sequela; F02.81 - Dementia in other diseases classified elsewhere with behavioral disturbance Status: Acute Plan: Patient with periods of impulsiveness and agitation Neuropsychology following Continue on Seroquel 50 mg twice daily and 100 mg nightly Fall precautions. Restrained patient as needed for patient safety -status post fall 12/25 despite close nursing supervision and bed alarm in place Trial of Melatonin prn insomnia - good results last night, continue. - Plan Mr. Suh is a 28 yo M with traumatic brain injury/depressed frontal skull fracture: RIGHT frontal depressed skull fx Basal skull fx RIGHT ICH SDH, SAH with encephalopathy 11/12 - 11/23 s/p bolt placement -Neurosurgery following peripherally, no further neurosurgical intervention at this point -CT brain for any change in neurologic status -Continue seizure precautions -Continue on valproic acid 250 mg 4 times daily -Continue with PT/OT/ST. Major neurocognitive disorder as late effect of traumatic brain injury with behavioral disturbance -Neuropsychology following -Some neurobehavioral improvement; difficulty with disinhibition/lability rather than aggression -Continue Seroquel 100mg/100mg/150mg -Continue Valproic Acid 250mg QID (last levels 79) -Continue Trazodone 50mg HS -Haldol PRN (has not needed since 02/01) -Fall precautions -Melatonin prn insomnia -check EKG once a week to evaluate for QTC prolongation -most recently EKG QTC was within normal limits (02/06) -Discussed with Neuropsychology: are attempting discharge to rehab facility if patient's family agreeable Extensive facial fractures -OMFS consulted ==> nonoperative management MSK RUE pain Resting hand splint for right upper extremity per OT recommendations Knee pain Impression: Improved today; patient denies complaints. Physical exam 02/06 benign with exception of pain; ambulating well and does not seem to limit PT activity. -Patient may use knee brace if desired Hep C antibody + 11/2017; mild LFT elevations -Will check RNA load/genotype prior to discharge; will need to arrange f/u plans DVT prophylaxis -Lovenox 40mg sq daily Discharge Planning: Mother is surrogate. Per discussion with mother, patient, and case management on 02/07, mother will look for rehabilitation options over the weekend. 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
[2018-02-10 09:51] LABS: Albumin 3.6 g/dL (3.4-5.0); Anion Gap 8 meq/L (5-15); Aspartate Aminotransferase 64 U/L (15-37); Blood Urea Nitrogen 14 mg/dL (7-18); Calcium 9.1 mg/dL (8.5-10.1); Carbon Dioxide 24.9 meq/L (21.0-32.0); Chloride 108 meq/L (98-107); Glomerular Filtration Rate Greater Than 89 mL/min (>89); Glucose,Random 77 mg/dL (74-106); Sodium 141 meq/L (136-145)
[2018-02-10 09:52] LABS: Alanine Aminotransferase 147 U/L (12-78)
[2018-02-10 09:54] LABS: Alkaline Phosphatase 123 U/L (45-117); Total Protein 7.9 g/dL (6.4-8.2)
[2018-02-10 12:27] VITALS: BP 130/74; PULSE 101; RESP 19; TEMP 97.6; O2SAT 97
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
[2018-02-12 19:52] LABS: Hepatitis C RNA (PCR) log IUs 6.12 (0-1.18)
== END 2018-02-10 12:38 | disposition home or self-care (01) ==
LOC: N07 16:58
PROVIDERS: ADMIT Family Medicine; ATTEND Family Medicine